=== PATIENT | female | born 1990 | race Caucasian/White ===

== ENCOUNTER 2024-06-08 12:02 | Outpatient (CLI) | payer BC, SELFPAY ==
[2024-06-08 12:48] LABS: Basophils Absolute Auto 0.1 K/mm3 (0.0-0.1); Basophils Percent Auto 0.6 % (0.2-1.2); Eosinophils Absolute Auto 0.1 K/mm3 (0-0.3); Eosinophils Percent Auto 0.5 % (0-4.4); Hematocrit 37.7 % (37.0-47.0); Hemoglobin 11.5 g/dL (12.0-15.0); Immature Granulocyte Absolute 0.05 K/mm3 (0.00-0.031); Immature Granulocyte Percent A 0.5 % (0-0.5); Lymphocytes Absolute Auto 2.99 K/mm3 (0.9-3.2); Lymphocytes Percent Auto 31.7 % (18.3-44.2); Mean Corpuscular HGB Conc 30.5 g/dl (32-36); Mean Corpuscular Hemoglobin 26.7 pg (26-34); Mean Corpuscular Volume 87.7 fl (80-100); Mean Platelet Volume 9.5 fl (7.4-10.4); Monocytes Absolute Auto 0.5 K/mm3 (0.1-0.6); Monocytes Percent Auto 5.5 % (2.6-8.5); Neutrophils Absolute Auto 5.8 K/mm3 (1.3-6.7); Neutrophils Percent Auto 61.2 % (45.5-73.1); Platelet Count Result 426 k/mm3 (150-375); Red Cell Distribution Width 13.9 % (11.5-14.5); White Blood Count 9.4 K/mm3 (4.5-10.0)
--- OUTSIDE RECORDS SUMMARY | 2024-06-08 13:47 | XMS_ITS | Referral Summary ---
Author Organization [facility] [address] Address [address] [place] [phone] Care Team Providers Care Glaze Carrier Name Role Phone Unknown, Notinfile Primary Care Provider Unavail able Encounters Date Type Department Care Team Description 04/24/2024 Telephone [email or web address] [address] [place] [address] [address] [address] Brissa Lemon MD Patient issue/concern 04/06/2024 Telephone [facility] Care at [address] [address] Brissa Lemon MD Vaginal Bleeding 03/25/2024 11:21 AM PRODUCTION COOK - 03/25/2024 11:59 PM PRODUCTION COOK Hospital Encounter [address] [phone] Missed period Discharge Disposition: Discharge to home or self care 03/25/2024 11:30 AM PRODUCTION COOK Lab [facility] Medical [facility] Outpatient Lab at [address] [address] Infertility, female (Primary Dx) 03/23/2024 11:30 AM PRODUCTION COOK - 03/23/2024 11:59 PM PRODUCTION COOK Hospital Encounter [address] [address] Missed period Discharge Disposition: Discharge to home or self care 03/23/2024 11:30 AM PRODUCTION COOK Lab [facility] Outpatient Lab at [address] [address] Hypercholesterolemia (Primary Dx) 03/23/2024 Telephone [facility] at [address] [address] Brissa Lemon MD Test Results from Last 3 Months Allergies No known active allergies Medications progesterone (PROMETRIUM) 100 mg capsule Take 1 capsule (100 mg total) by mouth daily Starting on Day 14 of the cycle. Increase to 200mg po with positive test. 30 capsule 11 4 01/21/20 25 Active Active Problems Problem Noted Date Diagnosed Date Hypercholesterolemia 01/08/2024 Well woman exam 12/30/2023 Overview (12/30/2023): Lab: Pap:all normal No recent labs. Kristin: Colonoscopy: BMD: Gardasil:she did not have. Assessment & Plan (12/30/2023 11:27 AM CDT): Due for complete exam in 09/2024 SAB (spontaneous ) 12/30/2023 Assessment & Plan (12/30/2023 11:32 AM CDT): To repeat beta To lp and hgba1c She just got blood work for thrombophilia secondary to her dad's h/o blood clots. He had a fatal PE. She has two mthfr mutations. I will check to see if she would benefit from different folic acid or basa. They will discuss carrier screening. Infertility, female 09/19/2023 Assessment & Plan (09/19/2023 9:37 AM CDT): The patient and her have actively been trying to conceive for about 1 year. The patient does appear to be ovulatory based on her symptoms and regular cycles. I did encourage her to continue to work on weight loss to promote fertility. We will go ahead and check a TSH as well as a 21 day progesterone. She also would like to look into a semen analysis for her , I will get some information on this. She will continue with timing intercourse. She does appear to have a shorter luteal phase, we could consider progesterone on the 2nd half of her cycle to see if this would improve her chances of fertility. Patient is agreeable. She will continue with vitamins. Social History Tobacco Use Types Packs/Day Years Used Date Smoking Tobacco: Never Smokeless Tobacco: Never Tobacco Cessation:Counseling Given: Not Answered Humiliation, Afraid, Rape, and Kick questionnair e Answer Date Recorded Within the last year, have y ou been afraid of your partner or ex-partner? No 12/30/2023 Within the last year, have y ou been humiliated or emotionally abused in other ways by your partner or ex-partner? No Within the last year, have y ou been kicked, hit, slapped, or otherwise physically hurt by your partner or ex-partner? No 12/30/2023 Within the last year, have y ou been raped or forced to have any kind of sexual activity by your partner or ex-partner? No 12/30/2023 AUDIT-C Answer Date Recorded Q1: How often do you have a drink containing alc ohol? Monthly or less 09/19/2023 Q2: How many drinks containi ng alcohol do you have on a typical day when you are drinking? 1 or 2 09/19/2023 Q3: How often do you have si x or more drinks on one occasion? Never 09/19/2023 PHQ-2 Answer Date Recorded PHQ-2 Total Score (If total score is 3 or more points, staff should administer the PHQ-9) 0 09/19/2023 Comments Unknown Sex and Gender Information Value Date Recorded Sex Assigned at Not on file Legal Sex Female 8:21 AM CDT Gender Identity Not on file Sexual Orientation Not on file Last Filed Vital Signs Vital Sign Reading Time Taken Comments Blood Pressure 122/72 12/30/2023 11:09 AM CDT Pulse - - Temperature - - Respiratory Rate - - Oxygen Saturation - - Inhaled Oxygen Concentration - - Weight 115.7 kg (255 lb) 12/30/2023 11:09 AM CDT Height 172.7 cm (5' 8 ) 12/30/2023 11:09 AM CDT Body Mass Index 38.77 12/30/2023 11:09 AM CDT Plan of Treatment Not on file Procedures Procedure Name Priority Date/Time Associated Diagnosis Comments HCG, BLOOD, QUANTITATIVE Routine 03/25/2024 11:21 AM PRODUCTION COOK Missed period TYPE AND SCREEN Timed 03/23/2024 11:30 AM PRODUCTION COOK Missed period PROGESTERONE Routine 03/23/2024 11:30 AM PRODUCTION COOK Missed period HCG, BLOOD, QUANTITATIVE Routine 03/23/2024 11:30 AM PRODUCTION COOK Missed period PAP AND HPV, REFLEX TO HPV GENOTYPES Routine 09/19/2023 9:45 AM CDT Encounter for gynecological examination with Papanicolaou smear of cervix from Last 3 Months or Most Recently Relevant to Health Maintenance Results * (ABNORMAL) hCG, blood, quantitative (03/25/2024 11:21 AM PRODUCTION COOK) hCG, quant 1,079.0(H ) 0.0 - 5.0 IUnits/L Comment: Interpretive Data Male: < 5 IU/L Non- premenopausal Female: <5 IU/L The Sindy hCG Beta Quant assay procedure was used. Results from different manufacturers or methods may not be comparable. Serial testing should be performed using the same method. Interpretive Data was last revised on 2023 Blood 03/25/2024 11:2 1 AM PRODUCTION COOK 03/25/2024 4:03 PM PRODUCTION COOK us Brissa Lemon MD LAB BLOOD ORDERABLE S Final Result CONNIE [address] Department [place] [address] * Progesterone (03/23/2024 11:30 AM PRODUCTION COOK) Progesterone 3.12 ng/mL Comment: Interpretive Data Males: <0.15 ng/mL Females: Follicular <0.20 ng/mL Ovulation <4.1 ng/mL Luteal 4.1 - 14.5 ng/mL 1st Trimester 11.0 - 44.0 ng/mL 2nd Trimester 25.0 - 83.0 ng/mL 3rd Trimester 59.0 - 214.0 ng/mL Postmenopausal <0.13 ng/mL Current interpretive data was last revised 2021. Testing performed by: [facility], [address] [facility], [place]., [address] Blood 03/23/2024 11:3 0 AM PRODUCTION COOK 03/24/2024 10:12 AM PRODUCTION COOK Brissa Lemon MD LAB BLOOD ORDERABLE S Final Result Performing Organization Address City/[facility] Co de Phone Number CONNIE [address] [address] [place] [address] * Type and screen (03/23/2024 11:30 AM PRODUCTION COOK) ABO Rh A Positive Jack, indirect Negative [facility] Blood 03/23/2024 11:3 0 AM PRODUCTION COOK 03/23/2024 3:25 PM PRODUCTION COOK Narrative [facility] - 03/23/2024 4:31 PM PRODUCTION COOK Has the patient had Daratumumab or Isatuximab in the past 6 months?->Unknown Result [facility] Brissa Lemon MD LAB BLOOD BANK TEST ORDERABLES Final Result Performing Organization Address [facility] de Phone Number ANAMARIAPAVAN [address] [address] [facility] [place] [address] * (ABNORMAL) hCG, blood, quantitative (03/23/2024 11:30 AM PRODUCTION COOK) hCG, quant 559.0(H) 0.0 - 5.0 IUnits/L Comment: Interpretive Data Male: < 5 IU/L Non- premenopausal Female: <5 IU/L The Sindy hCG Beta Quant assay procedure was used. Results from different manufacturers or methods may not be comparable. Serial testing should be performed using the same method. Interpretive Data was last revised on 2023 Blood 03/23/2024 11:3 0 AM PRODUCTION COOK 03/23/2024 3:19 PM PRODUCTION COOK Result [facility] Brissa Lemon MD LAB BLOOD ORDERABLE S Final Result Performing Organization Address [facility]/ZIP Co de Phone Number CONNIE REYNOLDS [address] [address] Department [place] [address] * Pap and HPV, reflex to HPV Genotypes (09/19/2023 9:45 AM CDT) CLINICAL INFORMATION: [facility] Comment:SCREENING LMP [facility] Comment:[id number] Previous Pap [facility] Comment:NONE GIVEN Prev. Bx [facility] Comment:NONE GIVEN SOURCE: [facility] Comment:Cervix, Endocervix Pap, specimen adequacy [facility] Comment: Satisfactory for evaluation. Endocervical/transformation zone component present. HPV interp [facility] Comment: Cytology Results: Negative for intraepithelial lesion or malignancy. COMMENTS [facility] Comment: This Pap test has been evaluated with computer assisted technology. Computer Artist [facility] Comment: [place], CT(ASCP) CT screening location: [place] [address] [place] [address] Comment [facility] Comment: EXPLANATORY NOTE: The Pap is a screening test for cervical cancer. It is not a diagnostic test and is subject to false negative and false positive results. It is most reliable when a satisfactory sample, regularly obtained, is submitted with relevant clinical findings and history, and when the Pap result is evaluated along with historic and current clinical information. Human papillomavirus DNA, High Risk E6/E7 Not Detected NOT DETECTED [employer] [facility] Comment: Not Detected High Risk HPV types (16,18,31,33,35,39,45,51,52, 56,58,59,66,68) were not detected. Other HPV types which cause anogenital lesions may be present. The significance of the other types of HPV in malignant processes has not been established. Methodology: Real Time PCR Thin prep 09/19/2023 9:45 AM CDT 09/21/2023 2:39 AM CDT us Olga Lidia Mancini NP LAB CYTOLOGY ORDERABLES Final Re sult Performing Organization Address City/[facility]/ZIP Co de Phone Number [place] [address] [place] [address] [facility]/[place] [address] [place] [address] from Last 3 Months or Most Recently Relevant to Health Maintenance Insurance [employer] ACCESS Care Teams Glaze Carrier Relationship Specialty Start Date End Date Unknown, Notinfile PCP - General 07/26/23
--- OUTSIDE RECORDS SUMMARY | 2024-06-08 13:47 | XMS_ITS | Clinical Summary ---
Author Organization [address] Address [address] [place] [address] Care Team Providers Care Metal Mixer Name Role Phone Unknown, Notinfile Primary Care Provider Unavail able Allergies No known active allergies Medications progesterone [...] is agreeable. She will continue with vitamins. Encounters Date Type Department Care Team Description 04/24/2024 Telephone [facility] [address] [place] [address] [address] [address] Brissa Lemon MD Patient issue/concern 04/06/2024 Telephone [facility] Care at [address] [address] Brissa Lemon MD Vaginal Bleeding 03/25/2024 11:30 AM PIPE SMOKER MACHINE OPERATOR Lab [facility] Outpatient Lab at [address] [address] Infertility, female (Primary Dx) 03/25/2024 11:21 AM PIPE SMOKER MACHINE OPERATOR - 03/25/2024 11:59 PM PIPE SMOKER MACHINE OPERATOR Hospital Encounter [address] [address] Missed period Discharge Disposition: Discharge to home or self care 03/23/2024 11:30 AM PIPE SMOKER MACHINE OPERATOR - 03/23/2024 11:59 PM PIPE SMOKER MACHINE OPERATOR Hospital Encounter [address] [address] Missed period Discharge Disposition: Discharge to home or self care 03/23/2024 11:30 AM PIPE SMOKER MACHINE OPERATOR Lab [facility] Outpatient Lab at [address] [address] Hypercholesterolemia (Primary Dx) 03/23/2024 Telephone [facility] at [address] [address] Brissa Lemon MD Test Results from Last 3 Months Family History Medical History Relation Name Comments Pulmonary embolism Father Ovarian cancer Maternal Grandmother Breast cancer Mother she was geneti dieter negative. Hypertension Mother Diabetes type II Paternal Grandfather Cancer Neg Hx no colon cmt Relation Name Status Comments Father Maternal Grandmother Mother Paternal Grandfather Social History Tobacco Use Types Packs/Day Years [...] on file Sexual Orientation Not on file Obstetrics History Para Term AB IAB SAB Ectopic Multiple Livin g Live Births 2 0 0 0 2 0 1 1 0 0 0 Date Outcome GA Total Labor Labor/2nd/3rd Weight Sex Type Anes PTL Leta A1 A5 Name Clin 024 SAB 025 Ectopic Last Filed Vital Signs Vital Sign Reading [...] 12/30/2023 11:09 AM CDT Plan of Treatment Health Maintenance Due Date Last Done Comments Hepatitis C Screening 1990 DTaP/Tdap/Td Vaccine (1 - Tdap) 2001 Varicella Vaccines (1 of 2 - 13+ 2-dose series) 10/01/2003 Hepatitis B Screening 2008 Covid-19 Vaccine (2023-2 5 season) 2023 07/24/2020, 07/01/2020 Influenza Vaccine (#1) 2023 12/16/2012 Cervical Cancer Screening 09/18/2024 09/19/2023 Depression Screening 09/18/2024 09/19/2023 Regular Well Visit/Exam 18-64 09/18/2024 09/19/2023 HPV Vaccines Aged Out No longer eligi ble based on patient's age to complete this topic Pneumococcal vaccine <65 Aged Out No longer eligible based on patient's age to complete this topic Procedures Procedure Name Priority Date/Time Associated Diagnosis Comments HCG, BLOOD, QUANTITATIVE Routine 03/25/2024 11:21 AM PIPE SMOKER MACHINE OPERATOR Missed period TYPE AND SCREEN Timed 03/23/2024 11:30 AM PIPE SMOKER MACHINE OPERATOR Missed period PROGESTERONE Routine 03/23/2024 11:30 AM PIPE SMOKER MACHINE OPERATOR Missed period HCG, BLOOD, QUANTITATIVE Routine 03/23/2024 11:30 AM PIPE SMOKER MACHINE OPERATOR Missed period PAP AND HPV, REFLEX TO HPV GENOTYPES Routine 09/19/2023 9:45 AM CDT Encounter for gynecological examination with Papanicolaou smear of cervix from Last 3 Months or Most Recently Relevant to Health Maintenance Results * (ABNORMAL) hCG, blood, quantitative (03/25/2024 11:21 AM PIPE SMOKER MACHINE OPERATOR) Pathologist [facility] hCG, quant 1,079.0(H ) 0.0 - 5.0 IUnits/L Comment: Interpretive Data Male: < 5 IU/L Non- premenopausal Female: <5 IU/L The Sindy hCG Beta Quant assay procedure was used. Results from different manufacturers or methods may not be comparable. Serial testing should be performed using the same method. Interpretive Data was last revised on 2023 Blood 03/25/2024 11:2 1 AM PIPE SMOKER MACHINE OPERATOR 03/25/2024 4:03 PM PIPE SMOKER MACHINE OPERATOR Brissa Lemon MD LAB BLOOD ORDERABLE S Final Result Performing Organization Address [facility] Co de Phone Number [facility] [address] [address] [employer] [place], [place] [id number] * Progesterone (03/23/2024 11:30 AM PIPE SMOKER MACHINE OPERATOR) Pathologist [facility] Progesterone 3.12 ng/mL Comment: Interpretive Data Males: <0.15 ng/mL Females: Follicular <0.20 ng/mL Ovulation <4.1 ng/mL Luteal 4.1 - 14.5 ng/mL 1st Trimester 11.0 - 44.0 ng/mL 2nd Trimester 25.0 - 83.0 ng/mL 3rd Trimester 59.0 - 214.0 ng/mL Postmenopausal <0.13 ng/mL Current interpretive data was last revised 2021. Testing performed by: [facility], [address] [place]., [address] Blood 03/23/2024 11:3 0 AM PIPE SMOKER MACHINE OPERATOR 03/24/2024 10:12 AM PIPE SMOKER MACHINE OPERATOR Brissa Lemon MD LAB BLOOD ORDERABLE S Final Result Performing Organization Address [facility] Co de Phone Number [facility] [address] [address] [facility] [place] [place] [address] * Type and screen (03/23/2024 11:30 AM PIPE SMOKER MACHINE OPERATOR) Pathologist [facility] ABO Rh A Positive Jack, indirect Negative [facility] Blood 03/23/2024 11:3 0 AM PIPE SMOKER MACHINE OPERATOR 03/23/2024 3:25 PM PIPE SMOKER MACHINE OPERATOR Narrative [facility] - 03/23/2024 4:31 PM PIPE SMOKER MACHINE OPERATOR Has the patient had Daratumumab or Isatuximab in the past 6 months?->Unknown Brissa Lemon MD LAB BLOOD BANK TEST ORDERABLES Final Result Performing Organization Address [facility] Co de Phone Number CONNIE [address] [address] [place] [place] [address] * (ABNORMAL) hCG, blood, quantitative (03/23/2024 11:30 AM PIPE SMOKER MACHINE OPERATOR) hCG, quant 559.0(H) 0.0 - 5.0 IUnits/L Comment: Interpretive Data Male: < 5 IU/L Non- premenopausal Female: <5 IU/L The Sindy hCG Beta Quant assay procedure was used. Results from different manufacturers or methods may not be comparable. Serial testing should be performed using the same method. Interpretive Data was last revised on 2023 Blood 03/23/2024 11:3 0 AM PIPE SMOKER MACHINE OPERATOR 03/23/2024 3:19 PM PIPE SMOKER MACHINE OPERATOR Result [facility] Brissa Lemon MD LAB BLOOD ORDERABLE S Final Result Performing Organization Address [facility] de Phone Number CONNIE [address] [address] [place] [place] [address] * Pap and HPV, reflex to HPV Genotypes (09/19/2023 9:45 AM CDT) CLINICAL INFORMATION: [facility] Comment:SCREENING LMP [facility] Comment:[id number] Previous Pap [facility] Comment:NONE GIVEN Prev. Bx [facility] Comment:NONE GIVEN SOURCE: [facility] Comment:Cervix, Endocervix Pap, specimen adequacy [facility] [employer] [facility] Comment: Satisfactory for evaluation. Endocervical/transformation zone component present. HPV interp [facility] Comment: Cytology Results: Negative for intraepithelial lesion or malignancy. COMMENTS [facility] Comment: This Pap test has been evaluated with computer assisted technology. Aids Nurse [facility] Comment: [place], CT(ASCP) CT screening location: [place] [address] [address] [place] [address] Comment [facility] Comment: EXPLANATORY NOTE: The Pap is [...] High Risk E6/E7 Not Detected NOT DETECTED [facility] /Iván CARRILLO Comment: Not Detected High Risk [...] NP LAB CYTOLOGY ORDERABLES Final Re sult [place] [address] [address] [place] [address] [facility] [place] [address] [facility] [place] [address] from Last 3 Months or Most Recently Relevant to Health Maintenance Insurance [facility] ACCESS Care Teams Metal Mixer Relationship Specialty Start Date End Date Unknown, Notinfile PCP - General 07/26/23
== END 2024-06-08 12:03 | disposition home or self-care (01) ==
LOC: ANHLAB 12:02
PROVIDERS: Visit Provider Obstetrics & Gynecology
DX: K66.1 Hemoperitoneum (principal)
CPT/HCPCS: 36415; 85025

== ENCOUNTER 2024-11-12 05:48 | Emergency (ER) | payer BC, SELFPAY ==
[2024-11-12] VITALS (36 sets, daily range): BP systolic 129–147; BP diastolic 82–106; PULSE 95–147; RESP 9–28; TEMP 37.1; O2SAT 96–100
--- NOTE | ~2024-11-12 | CT_ITS ---
CLINICAL INDICATION: Right upper quadrant pain COMPARISON: None. TECHNIQUE: Multiple contiguous axial images of the abdomen and pelvis were performed following the ad ministration of with 100 mL Omnipaque-350 intravenous contrast The dose-length product (DLP) was 1285.08 mGy-cm. Automated exposure control and iterative reconstruction technique were employed. FINDINGS/OBSERVATIONS: Visualized lower thorax: The bilateral lung bases are clear. The heart is of normal size, without pericardial effusion. Small hiatal hernia is present. Liver: The liver demonstrates homogeneous enhancement and is enlarged measuring 20 cm in longitudinal dimens ion. Gallbladder and biliary system: The gallbladder is distended and contains a 25 mm lamellated stone. Wall thickening and surrounding i nflammatory change is also noted consistent with acute cholecystitis. Pancreas: The pancreas enhances homogeneously without ductal dilatation. Spleen: The spleen enhances homogeneously and is not enlarged. Kidneys: The bilateral kidneys enhance symmetrically without renal calculi. Bilateral hydroureteronephrosis likely secondary bladder distention. Adrenal glands: Unremarkable. Gastrointestinal tract: Colonic diverticulosis without surrounding inflammatory change. Fecal stasis within the colon. Appendix: The air-filled appendix is of normal caliber (axial series, images 116 through 146). Vasculature: Unremarkable. Lymph nodes: No pathologically enlarged or morphologically suspicious lymph nodes within the retroperitoneum or at the root of the mesentery. Pelvic structures: The bladder is distended, and otherwise unremarkable. The uterus is anteroverted and antral flexed. 21 mm involuting cyst within the left ovary, asymmetrically enlarged compared to the right. Body wall and musculoskeletal: No significant degenerative disease within the lower thoracic or lumbosacral spine. IMPRESSION: Cholelithiasis with surrounding inflammatory change and gallbladder distention, findings suggestive o f acute cholecystitis (in the appropriate clinical scenario). Reviewed, dictated and finalized at location A. IMPRESSION: Cholelithiasis with surrounding inflammatory change and gallbladder distention, findings suggestive of acute cholecystitis (in the appropriate clinical scenar io).
--- OUTSIDE RECORDS SUMMARY | 2024-11-12 05:49 | XMS_ITS | Encounter Summary ---
Author Organization [facility] Address [address] [place] [address] Care Team Providers Care Consumer Relations Complaint Clerk Name Role Phone Unavailable Primary Care Provider Unavailabl e Reason for Visit * Radiology Services (Routine) - Authorized Specialty Diagnoses / Procedures Referred By Contac t Referred To Contact Radiology Diagnoses Procreative investigation and testing Procedures XR HYSTEROSALPINGOGRAM Cyn Sarabia MD [address] [place] [address] Phone: tel: fax: [facility] [address] [address] Phone: tel: fax: Referral ID Status Reason Start Date Expiration Date Visits Requested Visits Authorized [id number] Authorized [facility] Interventional 02/03/2025 1 1 Encounter Details Date Type Department Care Team (Late st Contact Info) Description 11/12/2024 1:00 PM CDT Hospital Encounter [facility] [place] [address] [place] [address] Cyn Sarabia MD [address] [place] [address] Social History Tobacco Use Types Packs/Day Years Used Date Smoking Tobacco: Never Assessed Comments Unknown Sex and Gender Information Value Date Recorded Sex Assigned at Not on file Legal Sex Female 9:14 AM CDT Gender Identity Not on file Sexual Orientation Not on file documented as of this encounter Plan of Treatment Not on file documented as of this encounter Visit Diagnoses Not on filedocumented in this encounter
--- OUTSIDE RECORDS SUMMARY | 2024-11-12 05:49 | XMS_ITS | Continuity of Care Document ---
Author Name [facility] Organization [facility] Care Team Providers Care Steel Plate Printer Name Role Phone [facility] Unavailable Unavailable Problems Combined list of problems from Department of Defense and Veterans Affairs facilities. It does not include entries that were removed or entered in error. Problem Status Onset Date Problem Type Date of Resolution Comments Source Outpatient Physician Consultation Active Condition [facility] CONDITIONS INFLUENCING HEALTH STATUS Active Condition DoD visit for: administrative purpose Inactive Condition [facility] Gynecologic Services Contraceptive Management Inactive Condition [facility] Cervical Pap Smear Inactive Condition Do D Established Patient Age 12-17 School / Camp Physical Inactive Condition [facility] Allergies, Adverse Reactions, Alerts Combined list of allergies from Department of Defense and Veterans Affairs facilities. It does not include entries that were removed or entered in error. Substance Category Reaction Severity Reaction type Status Date Reported Comments Source NO OUTPUT FOR NCID [id number] Drug allergy (disorder) active 10/02/[address] [place] [address] Rj MURILLO [facility]) Encounters Combined list of: 1) Encounters from Department of Veterans Affairs facilities going backup to the last 18 months, not all VA inpatient encounters are included; 2) Encounters from the Department of Defense facilities going backup to 280 months. Location Location Details Encounter Type Encounter Number Reason For Visit Attending Provider ADM Date DC Date Status Disposition Source [address] [place] [address] Rj [facility]ILLO [facility])(Sco tt [facility] Fam Res Tm Green) OUTPATIENT [id number] school ELEN Don 11/21 Released w/o Limitations [address] [place] [address] Rj [facility]S cott [facility] Fam Res Tm Green) [address] [place] [address] Rj [facility]ILLO [facility])(Fam darek Med Tm B Non-AD BCC) TELE CONSULT [id number] Notes Entered by: YOSELYN BABIN 15 Nov 2011 1258 ------- ------- ------- ------- -- WORLD TRAVEL COUNSELOR Referra l/Victorino ell/[phone]/KMR JOANNE COFFEY 11/[address] [place] [address])(F amily Med Tm B Non-AD BCC) [address] [place] [address])(Fam darek Med Tm B Non-AD BCC) TELE CONSULT [id number] Notes Entered by: QUIN LUCIANO 04 Dec 2011 1357 ------- ------- ------- ------- -- WORLD TRAVEL COUNSELOR Annamarie greer - [facility] JOANNE COFFEY 12/[address] [place] [address])(F amily Med Tm B Non-AD BCC) [address] [place] [address])(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) TELE CONSULT [id number] Notes Entered by: Franky URBINA 06 Dec 2011 1501 ------- ------- ------- ------- -- Pt would like annamarie greer off base VIRGINIA MOREL 12/[address] [place] [address])(G ynecolo gy) [address] [place] [address])(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) OUTPATIENT [id number] [facility] Contrac eptive Manage ent YIFAN MENSAH 12/13 Released w/o Limitations [address] [place] [address])(G ynecolo gy) [address] [place] [address])(Fam darek Med Tm B Non-AD BCC) TELE CONSULT [id number] Notes Entered by: MARK ALBERTO 26 Nov 2012 1546 ------- ------- ------- ------- -- Kalyan greer/GAURAV Vital 11/[address] [place] [address])(F amily Med Tm B Non-AD BCC) [address] [place] [address])(War rior Op Med Cln Tm A Ad) TELE CONSULT [id number] Notes Entered by: ABDIRASHID MCMULLEN 02 Jan 2013 1149 ------- ------- ------- ------- -- Network Results -ONCOLO GY 12/16/12 YAYA JEREMY STRAUSS 01/[address] [place] [address] Group Rj MURILLO ([facility]W arrior Op Med Cln Tm A Ad) [address] [place] [address] Group Rj MURILLO ([facility])(Fam darek Med Tm B Non-AD BCC) OUTPATIENT [id number] F/u concuss ion on Saturday [facility] RADHA ZAVALA 08/10 Released w/o Limitations [address] [place] [address] Group Rj MURILLO ([facility])(F amily Med Tm B Non-AD BCC) Procedures Combined list of: 1) Procedures from Department of Veterans Affairs facilities going back up to thelast 18 months, not all VA non-surgical procedures are included; 2) All procedures from the Department of Defense facilities. Procedure Procedure Type Code Date Perfomer Comments Sour e TELE ASSESS & MGT SRV PROV QUAL NONPHYS HLTH CARE PRO TO EST PAT,PARENT,GUARD NOT ORIG REL ASSESS & MGT SRV PROV W/IN PREV 7 DAYS NOR LEAD ASSESS & MGT SRV/PX W/IN NXT 24 HR/SOON APT;5-10 MIN MED DIS 11/26/2012 DoD TELE ASSESS & MGT SRV PROV QUAL NONPHYS HLTH CARE PRO TO EST PAT,PARENT,GUARD NOT ORIG REL ASSESS & MGT SRV PROV W/IN PREV 7 DAYS NOR LEAD ASSESS & MGT SRV/PX W/IN NXT 24H/SOON APT; 11-20 MIN MED DIS 12/04/2011 DoD TELE ASSESS & MGT SRV PROV QUAL NONPHYS HLTH CARE PRO TO EST PAT,PARENT,GUARD NOT ORIG REL ASSESS & MGT SRV PROV W/IN PREV 7 DAYS NOR LEAD ASSESS & MGT SRV/PX W/IN NXT 24H/SOON APT; 11-20 MIN MED DIS 11/15/2011 DoD Non-Physician Phone Call To Patient/Provider Brief (5-10min) Non-Physician Phone Call To Patient/Provider Brief (5-10min) [id number] 11/28/2012 GAURAV WEBER [facility] Non-Physician Phone Call To Pt/Provider Intermed (11-20 min) Non-Physician Phone Call To Pt/Provider Intermed (11-20 min) [id number] 12/06/2011 JOANNE COFFEY DoD Non-Physician Phone Call To Pt/Provider Intermed (11-20 min) Non-Physician Phone Call To Pt/Provider Intermed (11-20 min) [phone] 11/16/2011 JOANNE COFFEY DoD Social History Combined list of available smoking, tobacco, and other social history from Department of Defense and Veterans Affairs facilities. Social History Type Response Date Comment [facility] e This section is an empty social history section. DoD
--- OUTSIDE RECORDS SUMMARY | 2024-11-12 05:49 | XMS_ITS | Clinical Summary ---
Author Organization [facility] Administrative Offices Address [address] [place] [address] Care Team Providers Care Party Supply Specialist Name Role Phone Unavailable Primary Care Provider Unavailabl e Encounters Date Type Department Care Team Description 11/12/2024 1:00 PM CDT Hospital Encounter [facility] Diagnostic XR [address] [place] [phone] Cyn Sarabia MD from Last 3 Months Social History Tobacco Use Types Packs/Day Years Used Date Smoking Tobacco: Never Assessed Comments Unknown Sex and Gender Information Value Date Recorded Sex Assigned at Not on file Legal Sex Female 9:14 AM CDT Gender Identity Not on file Sexual Orientation Not on file Plan of Treatment Upcoming Encounters Date Type Department Care Team (Late st Contact Info) Description 11/12/2024 1:00 PM CDT Hospital Encounter [facility] Diagnostic XR [address] [place] [address] Cyn Sarabia MD [address] [place] [phone] Health Maintenance Due Date Last Done Comments HPV VACCINES (1 - 3-dose series) 2005 DTAP/TDAP/TD VACCINES (1 - Tdap) 2009 HEPATITIS B VACCINES (1 of 3 - 19+ 3-dose series) 09/13 HPV/Cotest (21-29) 10/01/2011 CERVICAL CANCER SCREENING 2020 HPV/Cotest (30-65) 2020 PAP SMEAR 2020 INFLUENZA VACCINE (#1) 2024
--- OUTSIDE RECORDS SUMMARY | 2024-11-12 05:49 | XMS_ITS | Referral Summary ---
Author Organization [address] Address [address] [place] [phone] Care Team Providers Care Light Armored Vehicle Officer Name Role Phone Unknown, Notinfile Primary Care [...] 11:09 AM CDT Height 172.7 cm (5' 8) 12/30/2023 11:09 AM CDT Body Mass Index 38.77 12/30/2023 11:09 AM CDT Plan of Treatment Not on file Procedures Procedure Name Priority Date/Time Associated Diagnosis Comments PAP AND HPV, REFLEX TO HPV GENOTYPES Routine 09/19/2023 9:45 AM CDT Encounter for gynecological examination with Papanicolaou smear of cervix from Last 3 Months or Most Recently Relevant to Health Maintenance Results * Pap and HPV, reflex to HPV Genotypes (09/19/2023 9:45 AM CDT) CLINICAL INFORMATION: [facility] Comment:SCREENING LMP [facility] Comment:[phone] Previous Pap [facility] Comment:NONE GIVEN Prev. Bx [facility] Comment:NONE GIVEN SOURCE: [facility] Comment:Cervix, Endocervix Pap, specimen adequacy [facility] Comment: Satisfactory for evaluation. Endocervical/transformation zone component present. HPV interp [facility] Comment: Cytology Results: Negative for intraepithelial lesion or malignancy. COMMENTS [facility] Comment: This Pap test has been evaluated with computer assisted technology. Motion Picture Set Grip [facility] Comment: [place], [place](ASCP) CT screening location: [place] [address] [place] [address] Comment [facility] Comment: EXPLANATORY NOTE: The Pap is a [...] High Risk E6/E7 Not Detected NOT DETECTED [facility] /Iván CARRILL[facility] Comment: Not Detected High Risk HPV types (16,18,31,33,35,39,45,51,52, 56,58,59,66,68) were not detected. Other HPV types which cause anogenital lesions may be present. The significance of the other types of HPV in malignant processes has not been established. Methodology: Real Time PCR Thin prep 09/19/2023 9:45 AM CDT 09/21/2023 2:39 AM CDT Olga Lidia Mancini NP LAB CYTOLOGY ORDERABLES Final Re [facility] [address] [place] [address] [facility] [address] [place] [address] from Last 3 Months or Most Recently Relevant to Health Maintenance Insurance [employer] ACCESS Care Teams Light Armored Vehicle Officer Relationship Specialty Start Date End Date Unknown, Notinfile PCP - General 07/26/23
--- OUTSIDE RECORDS SUMMARY | 2024-11-12 05:49 | XMS_ITS | Clinical Summary ---
Author Organization [address] Address [address] [place] [phone] Care Team Providers Care Ranch Manager Name Role Phone Unknown, Notinfile Primary Care [...] is agreeable. She will continue with vitamins. Family History Medical History Relation Name Comments [...] 2-dose series) 10/01/2003 Hepatitis B Screening 2008 HPV Vaccines (1 - 3-dose SCD M series) 2017 Covid-19 Vaccine (3 - 2023-2 5 season) 2023 07/24/2020, 07/01/2020 Cervical Cancer Screening 09/18/2024 09/19/2023 Depression Screening 09/18/2024 09/19/2023 Regular Well Visit/Exam 18-64 09/18/2024 09/19/2023 Influenza Vaccine (#1) 2024 12/16/2012 Pneumococcal vaccine <65 Aged Out No longer [...] Genotypes (09/19/2023 9:45 AM CDT) CLINICAL INFORMATION: [facility] Comment:SCREENING LMP [facility] Comment:[id number] Previous Pap [facility] Comment:NONE GIVEN Prev. Bx [facility] Comment:NONE GIVEN SOURCE: [facility] Comment:Cervix, Endocervix Pap, specimen adequacy [facility] Comment: Satisfactory for evaluation. Endocervical/transformation zone component present. HPV interp [facility] Comment: Cytology Results: Negative for intraepithelial lesion or malignancy. COMMENTS [facility] Comment: This Pap test has been evaluated with computer assisted technology. Cattle Killer Que [facility] Comment: [place], [place](ASCP) CT screening location: [place] [address] [address] [place] [address] Comment [facility] Comment: EXPLANATORY NOTE: The Pap is [...] High Risk E6/E7 Not Detected NOT DETECTED Rigo Chavez /Iván CARRILLO Comment: Not Detected High Risk [...] NP LAB CYTOLOGY ORDERABLES Final Re sult [facility] [address] [place] [address] [address] Chavez/[place] [address] [facility] [place] [address] from Last 3 Months or Most Recently Relevant to Health Maintenance Insurance [employer] ACCESS Care Teams Ranch Manager Relationship Specialty Start Date End Date Unknown, Notinfile PCP - General 07/26/23
[2024-11-12 06:07] LABS: BEDSIDEPREGUCG Negative (Negative)
[2024-11-12] MEDS: SODIUM CHLORIDE 0.9% IV 2,000 ML 999 ML IV CONT (06:08)
[2024-11-12 06:10] LABS: Hematocrit 38.4 % (37.0-47.0); Hemoglobin 12.4 g/dL (12.0-15.0); Immature Granulocyte Percent A 0.3 % (0-0.5); Lymphocytes Absolute Auto 2.24 K/mm3 (0.9-3.2); Mean Corpuscular HGB Conc 32.3 g/dl (32-36); Mean Corpuscular Hemoglobin 28.0 pg (26-34); Mean Corpuscular Volume 86.7 fl (80-100); Nucleated Red Blood Cells Absolute Auto 0.000 K/mm3 (0.0-0.012); Nucleated Red Blood Cells Perc 0.0 % (0.0-0.2); Platelet Count Result 371 k/mm3 (150-375); Red Blood Count 4.43 M/mm3 (4.2-5.4); White Blood Count 14.2 K/mm3 (4.5-10.0)
[2024-11-12] MEDS: FAMOTIDINE 20 MG/2 ML VIAL IV PUSH (06:12)
[2024-11-12] MEDS: ONDANSETRON INJ 4 MG/2 ML VIAL IV PUSH (06:12)
--- NOTE | 2024-11-12 06:15 | ED.GENADULT ---
HPI - General Adult General Chief complaint: Abdominal Pain <Joaquim Roberts MD - Last Filed: 11/12/24 19:03> Stated complaint: flank pain <Joaquim Roberts MD - Last Filed: 11/12/24 19:03> Time Seen by Provider: 11/12/24 06:03 <Joaquim Roberts MD - Last Filed: 11/12/24 19:03> History of Present Illness HPI narrative: This is a 34-year-old female presenting for right upper quadrant abdominal pain. Pain started Saturday night. She describes it as a burning pain in the right quadrant that radiates to her back. It is 5 out 10 intensity. Pain comes and goes. It improves with Motrin Tylenol. Associated with nausea but no vomiting or diarrhea. She denies fevers chest pain difficulty breathing. Patient has no history of biliary colic or gallstones she is aware of. Last bowel movement was earlier today and was normal. Patient had an ectopic treated with surgery in April of this year <Joaquim Roberts MD - Last Filed: 11/12/24 19:03> Related Data Home medications: Home Medications ?Medication ?Instructions ?Recorded ?Confirmed ?Last Taken ?Type aspirin 81 mg tablet,delayed 81 mg PO DAILY 05/11/24 09/11/24 Unknown History release (Adult Low Dose Aspirin) vitamins no.68-iron 28 1 cap PO DAILY 05/11/24 09/11/24 Unknown History mg-folate no.6 1 mg-dha 400 mg capsule <Joaquim Roberts MD - Last Filed: 11/12/24 19:03> Allergies/adverse reactions: Allergies Allergy/AdvReac Type Severity Reaction Status Date / Time No Known Allergies Allergy Unknown Verified 09/11/24 09:26 <Joaquim Roberts MD - Last Filed: 11/12/24 19:03> FOR[facility]LY [facility] Past Medical History Medical History: Medical History Hemoperitoneum Obesity <Joaquim Roberts MD - Last Filed: 11/12/24 19:03> Surgical History Surgical History: Surgical History H/O unilateral salpingectomy (04/23/24) Evacuation hematoma 2. Left salpingectomy <Joaquim Roberts MD - Last Filed: 11/12/24 19:03> Family History Family History: Family History Mother Breast cancer Depression Hypertension Father Pulmonary air embolism, Onset Age: 47 Grandparent H/O ovarian cancer maternal grandmother <Joaquim Roberts MD - Last Filed: 11/12/24 19:03> Social History Social History: Social History Smoking status: Never smoker Second hand tobacco smoke exposure: Yes Alcohol intake: current Alcohol use details: 1 a month Substance use: never Substance use type: does not use Do You Feel Safe in your Home?: Yes Lack of Transportation: No Lack of Food: Never True Current Housing: I Have Housing Concerned About Future Housing: No Difficulty Paying Gas/Electric Bills: No Difficulty Paying for Meds: No Currently Unemployed: No Education: Bachelor's Degree Difficulty w/ Childcare or Family Care: No Living arrangements: with family Additional living arrangements comments: Occupation/Education: 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 Anxious appearing Head: atraumatic. EYES: EOMI, NOSE: Atraumatic NECK: Trachea midline RESPIRATORY: No increased rate of breathing CTAB CARDIOVASCULAR: Tachycardic no peripheral edema ABDOMINAL: Tenderness to palpation in the right upper quadrant without guarding or rebound MUSCULOSKELETAl: No obvious deformities NEURO: Alert. Moving 4/4 extremities SKIN:: Warm, dry. Normal color PSYCHIATRIC: Normal affect <Joaquim Roberts MD - Last Filed: 11/12/24 19:03> Course Course Emergency Course: Patient resting comfortably. Informed of results. Abdomen is soft nontender. Discussed with the General surgery. Recommends outpatient follow-up with low-fat diet. Patient comfortable with this plan. Discussed return precautions. Discharge. <Terrance Saeed MD - Last Filed: 11/12/24 09:30> Vital Signs Vital signs: Vital Signs Temperature 98.7 F 11/12/24 05:59 Pulse Rate 130 H 11/12/24 05:59 Respiratory Rate 17 11/12/24 05:59 Blood Pressure 147/82 H 11/12/24 05:59 Pulse Oximetry 100 11/12/24 05:59 Oxygen Delivery Room Air 11/12/24 05:59 Temperature 98.7 F 11/12/24 05:59 Pulse Rate 115 H 11/12/24 08:50 Respiratory Rate 16 11/12/24 08:50 Blood Pressure 130/84 11/12/24 08:01 Pulse Oximetry 99 11/12/24 08:50 Oxygen Delivery Room Air 11/12/24 05:59 <Joaquim Roberts MD - Last Filed: 11/12/24 19:03> Vital Signs Temperature 98.7 F 11/12/24 05:59 Pulse Rate 130 H 11/12/24 05:59 Respiratory Rate 17 11/12/24 05:59 Blood Pressure 147/82 H 11/12/24 05:59 Pulse Oximetry 100 11/12/24 05:59 Oxygen Delivery Room Air 11/12/24 05:59 Temperature 98.7 F 11/12/24 05:59 Pulse Rate 115 H 11/12/24 08:50 Respiratory Rate 16 11/12/24 08:50 Blood Pressure 130/84 11/12/24 08:01 Pulse Oximetry 99 11/12/24 08:50 Oxygen Delivery Room Air 11/12/24 05:59 <Terrance Saeed MD - Last Filed: 11/12/24 09:30> Medical Decision Making MDM Narrative Medical decision making narrative: -Course: 34-year-old female presenting with right upper quadrant abdominal pain. Tachycardic on arrival although she admits to being very anxious. Patient given IV fluids, Pepcid and Zofran. She declined Dilaudid. Laboratory studies and CT abdomen pelvis ordered to evaluate for cholecystitis. Patient signed out the and condition pending completion of her workup in -DDX includes but is not limited to: Biliary colic, gastritis, colitis, pancreatitis, appendicitis <Joaquim Roberts MD - Last Filed: 11/12/24 19:03> Vital Signs Vital Signs: Vital Signs Temperature 98.7 F 11/12/24 05:59 Pulse Rate 130 H 11/12/24 05:59 Respiratory Rate 17 11/12/24 05:59 Blood Pressure 147/82 H 11/12/24 05:59 Pulse Oximetry 100 11/12/24 05:59 Oxygen Delivery Room Air 11/12/24 05:59 Temperature 98.7 F 11/12/24 05:59 Pulse Rate 115 H 11/12/24 08:50 Respiratory Rate 16 11/12/24 08:50 Blood Pressure 130/84 11/12/24 08:01 Pulse Oximetry 99 11/12/24 08:50 Oxygen Delivery Room Air 11/12/24 05:59 <Joaquim Roberts MD - Last Filed: 11/12/24 19:03> Vital Signs Temperature 98.7 F 11/12/24 05:59 Pulse Rate 130 H 11/12/24 05:59 Respiratory Rate 17 11/12/24 05:59 Blood Pressure 147/82 H 11/12/24 05:59 Pulse Oximetry 100 11/12/24 05:59 Oxygen Delivery Room Air 11/12/24 05:59 Temperature 98.7 F 11/12/24 05:59 Pulse Rate 115 H 11/12/24 08:50 Respiratory Rate 16 11/12/24 08:50 Blood Pressure 130/84 11/12/24 08:01 Pulse Oximetry 99 11/12/24 08:50 Oxygen Delivery Room Air 11/12/24 05:59 <Terrance Saeed MD - Last Filed: 11/12/24 09:30> Lab Data Result diagrams: 11/12/24 06:04 11/12/24 06:04 <Joaquim Roberts MD - Last Filed: 11/12/24 19:03> Labs: Lab Results 11/12/24 11/12/24 Range/Units 06:04 06:05 WBC 14.2 H (4.5-10.0) K/mm3 RBC 4.43 (4.2-5.4) M/mm3 Hgb 12.4 (12.0-15.0) g/dL Hct 38.4 (37.0-47.0) % MCV 86.7 (80-100) fl MCH 28.0 (26-34) pg MCHC 32.3 (32-36) g/dl RDW 14.5 (11.5-14.5) % Plt Count 371 (150-375) k/mm3 MPV 9.7 (7.4-10.4) fl Immature Gran % (Auto) 0.3 (0-0.5) % Neut % (Auto) 77.8 H (45.5-73.1) % Lymph % (Auto) 15.8 L (18.3-44.2) % [place] % (Auto) 4.9 (2.6-8.5) % Eos % (Auto) 0.8 (0-4.4) % Baso % (Auto) 0.4 (0.2-1.2) % Lymph # (Auto) 2.24 (0.9-3.2) K/mm3 [place] # (Auto) 0.7 H (0.1-0.6) K/mm3 Eos # (Auto) 0.1 (0-0.3) K/mm3 Baso # (Auto) 0.1 (0.0-0.1) K/mm3 Abs Immat Gran (auto) 0.04 H (0.00-0.031) K/mm3 Absolute Neuts (auto) 11.1 H (1.3-6.7) K/mm3 Absolute Nucleated RBC 0.000 (0.0-0.012) K/mm3 Nucleated RBC % 0.0 (0.0-0.2) % Sodium 135 L (137-145) mmol/L Potassium 3.3 L (3.4-5.0) mmol/L Chloride 99 (98-107) mmol/L Carbon Dioxide 25 (22-30) mmol/L Anion Gap 11 (4-12) mmol/L BUN 5 L D (7-17) mg/dL Creatinine 0.61 L (0.7-1.0) mg/dL Estim Creat Clear Calc 143 ml/min Estimated GFR > 60 (59 - ) Glucose 105 (65-110) mg/dL Calcium 9.5 (8.4-10.2) mg/dL Total Bilirubin 2.3 H (0.2-1.3) mg/dL AST 36 (14-36) U/L ALT 37 H (6-35) U/L Alkaline Phosphatase 92 (38-126) U/L Total Protein 8.7 H (6.3-8.2) g/dL Albumin 4.4 (3.5-5.1) g/dL Lipase 84 (23-300) U/L Urine Color Yellow (Yellow) Urine Appearance Clear (Clear) Urine pH 7.0 (5.0-9.0) Ur Specific [place] 1.008 (1.001-1.035) Urine Protein Negative (Negative) mg/dL Urine Glucose (UA) Negative (Negative) mg/dL Urine Ketones 1+ H (Negative) mg/dL Ur Blood (Man) 2+ H (Negative) Urine Nitrate Negative (Negative) Urine Bilirubin Negative (Negative) Urine Urobilinogen 1.0 (<2.0) mg/dL Leukocyte Esterase Rfl Negative (Negative) HANS/UL Urine RBC 11-20 H (0-2) /hpf Urine WBC 0-5 (0-3) /hpf Ur Squamous Epith Cells None seen (Few) /hpf Urine Bacteria None seen /hpf Urine Casts 0-2 POC Urine HCG, Qual Negative (Negative) <Joaquim Roberts MD - Last Filed: 11/12/24 19:03> Lab Results 11/12/24 11/12/24 Range/Units 06:04 06:05 WBC 14.2 H (4.5-10.0) K/mm3 RBC 4.43 (4.2-5.4) M/mm3 Hgb 12.4 (12.0-15.0) g/dL Hct 38.4 (37.0-47.0) % MCV 86.7 (80-100) fl MCH 28.0 (26-34) pg MCHC 32.3 (32-36) g/dl RDW 14.5 (11.5-14.5) % Plt Count 371 (150-375) k/mm3 MPV 9.7 (7.4-10.4) fl Immature Gran % (Auto) 0.3 (0-0.5) % Neut % (Auto) 77.8 H (45.5-73.1) % Lymph % (Auto) 15.8 L (18.3-44.2) % [place] % (Auto) 4.9 (2.6-8.5) % Eos % (Auto) 0.8 (0-4.4) % Baso % (Auto) 0.4 (0.2-1.2) % Lymph # (Auto) 2.24 (0.9-3.2) K/mm3 [place] # (Auto) 0.7 H (0.1-0.6) K/mm3 Eos # (Auto) 0.1 (0-0.3) K/mm3 Baso # (Auto) 0.1 (0.0-0.1) K/mm3 Abs Immat Gran (auto) 0.04 H (0.00-0.031) K/mm3 Absolute Neuts (auto) 11.1 H (1.3-6.7) K/mm3 Absolute Nucleated RBC 0.000 (0.0-0.012) K/mm3 Nucleated RBC % 0.0 (0.0-0.2) % Sodium 135 L (137-145) mmol/L Potassium 3.3 L (3.4-5.0) mmol/L Chloride 99 (98-107) mmol/L Carbon Dioxide 25 (22-30) mmol/L Anion Gap 11 (4-12) mmol/L BUN 5 L D (7-17) mg/dL Creatinine 0.61 L (0.7-1.0) mg/dL Estim Creat Clear Calc 143 ml/min Estimated GFR > 60 (59 - ) Glucose 105 (65-110) mg/dL Calcium 9.5 (8.4-10.2) mg/dL Total Bilirubin 2.3 H (0.2-1.3) mg/dL AST 36 (14-36) U/L ALT 37 H (6-35) U/L Alkaline Phosphatase 92 (38-126) U/L Total Protein 8.7 H (6.3-8.2) g/dL Albumin 4.4 (3.5-5.1) g/dL Lipase 84 (23-300) U/L Urine Color Yellow (Yellow) Urine Appearance Clear (Clear) Urine pH 7.0 (5.0-9.0) Ur Specific [place] 1.008 (1.001-1.035) Urine Protein Negative (Negative) mg/dL Urine Glucose (UA) Negative (Negative) mg/dL Urine Ketones 1+ H (Negative) mg/dL Ur Blood (Man) 2+ H (Negative) Urine Nitrate Negative (Negative) Urine Bilirubin Negative (Negative) Urine Urobilinogen 1.0 (<2.0) mg/dL Leukocyte Esterase Rfl Negative (Negative) HANS/UL Urine RBC 11-20 H (0-2) /hpf Urine WBC 0-5 (0-3) /hpf Ur Squamous Epith Cells None seen (Few) /hpf Urine Bacteria None seen /hpf Urine Casts 0-2 POC Urine HCG, Qual Negative (Negative) <Terrance Saeed MD - Last Filed: 11/12/24 09:30> Discharge Plan Discharge Clinical Impression: Biliary colic <Joaquim Roberts MD - Last Filed: 11/12/24 19:03> Patient Disposition: Home <Joaquim Roberts MD - Last Filed: 11/12/24 19:03> Condition: Stable <Joaquim Roberts MD - Last Filed: 11/12/24 19:03> Instructions: Biliary Colic (ED), Low Fat Diet (ED) <Joaquim Roberts MD - Last Filed: 11/12/24 19:03> Additional Instructions: Return to the emergency department if you develop severe abdominal pain, severe nausea and vomiting to the point where you are unable to keep down fluids, if you develop chest pain or difficulty breathing, blood in your stool, dizziness or fainting, or if you develop any other new or concerning symptoms as these could be signs of more serious medical illness. Try to stay well hydrated. <Joaquim Roberts MD - Last Filed: 11/12/24 19:03> Patient Language: Cape Verdean <Joaquim Roberts MD - Last Filed: 11/12/24 19:03> Prescriptions: No Action progesterone micronized [Prometrium] 200 mg capsule 200 mg PO QHS 45 Days Qty: 45 3RF [id number] 28 mg iron- 1 mg-400 mg capsule 1 cap PO DAILY aspirin [Adult Low Dose Aspirin] 81 mg tablet,delayed release (DR/EC) 81 mg PO DAILY <Joaquim Roberts MD - Last Filed: 11/12/24 19:03> Follow-up/Referrals: Gio Osei MD [Physician] - 1 Week UNKNOWN,DOCTOR [Primary Care Provider] - <Joaquim Roberts MD - Last Filed: 11/12/24 19:03>
--- OUTSIDE RECORDS SUMMARY | 2024-11-12 06:17 | XMS_ITS | Referral Summary ---
Author Organization [address] Address [address] [place] [address] Care Team Providers Care Director Hospice Operations Name Role Phone Unknown, Notinfile Primary Care [...] Genotypes (09/19/2023 9:45 AM CDT) CLINICAL INFORMATION: [facility] Comment:SCREENING LMP [facility] Comment:[id number] Previous Pap [facility] Comment:NONE GIVEN Prev. Bx [facility] Comment:NONE GIVEN SOURCE: [facility] Comment:Cervix, Endocervix Pap, specimen adequacy [facility] Comment: Satisfactory for evaluation. Endocervical/transformation zone component present. HPV interp [facility] Comment: Cytology Results: Negative for intraepithelial lesion or malignancy. COMMENTS [facility] Comment: This Pap test has been evaluated with computer assisted technology. Roll Out Manager [facility] Comment: [place], [place](ASCP) CT screening location: [place] [address] [place] [address] [facility] Comment: EXPLANATORY NOTE: The Pap is [...] High Risk E6/E7 Not Detected NOT DETECTED [employer] [facility] [place] Comment: Not Detected High Risk HPV types (16,18,31,33,35,39,45,51,52, 56,58,59,66,68) were not detected. Other HPV types which cause anogenital lesions may be present. The significance of the other types of HPV in malignant processes has not been established. Methodology: Real Time PCR Thin prep 09/19/2023 9:45 AM CDT 09/21/2023 2:39 AM CDT Olga Lidia Mancini NP LAB CYTOLOGY ORDERABLES Final [facility] [address] [place] [address] [facility] [address] [place] [address] from Last 3 Months or Most Recently Relevant to Health Maintenance Insurance [employer] ACCESS Care Teams Director Hospice Operations Relationship Specialty Start Date End Date Unknown, Notinfile PCP - General 07/26/23
--- OUTSIDE RECORDS SUMMARY | 2024-11-12 06:17 | XMS_ITS | Clinical Summary ---
Author Organization [facility] Address [address] [place] [address] Care Team Providers Care Salt Manager Name Role Phone Unavailable Primary Care Provider Unavailabl e Encounters Date Type Department Care Team Description 11/12/2024 1:00 PM CDT Hospital Encounter [facility] [place]R [address] [place] [phone] Cyn Sarabia MD from Last 3 Months [...] Description 11/12/2024 1:00 PM CDT Hospital Encounter [facility] Diagnostic [place]R [address] [place] [address] Cyn Sarabia MD [address] [phone] Health Maintenance Due Date Last Done Comments HPV VACCINES (1 - 3-dose series) 2005 DTAP/TDAP/TD VACCINES (1 - Tdap) 2009 HEPATITIS B VACCINES (1 of 3 - 19+ 3-dose series) 09/13 HPV/Cotest (21-29) 10/01/2011 CERVICAL CANCER SCREENING 2020 HPV/Cotest (30-65) 2020 PAP SMEAR 2020 INFLUENZA VACCINE (#1) 2024
--- OUTSIDE RECORDS SUMMARY | 2024-11-12 06:17 | XMS_ITS | Clinical Summary ---
Author Organization [address] Address [address] [place] [address] Care Team Providers Care Cube Cutter Name Role Phone Unknown, Notinfile Primary Care [...] Genotypes (09/19/2023 9:45 AM CDT) CLINICAL INFORMATION: [facility] Comment:SCREENING LMP [facility] Comment:[id number] Previous Pap [facility] Comment:NONE GIVEN Prev. Bx [facility] Comment:NONE GIVEN SOURCE: [facility] Comment:Cervix, Endocervix Pap, specimen adequacy [facility] Comment: Satisfactory for evaluation. Endocervical/transformation zone component present. HPV interp [facility] Comment: Cytology Results: Negative for intraepithelial lesion or malignancy. COMMENTS [facility] Comment: This Pap test has been evaluated with computer assisted technology. [employer] [facility] Comment: [place], [place](ASCP) CT screening location: [place] [address] [address] [address] Comment [facility] Comment: EXPLANATORY NOTE: The Pap is [...] NP LAB CYTOLOGY ORDERABLES Final Re sult [facility] [address] [address] [address] [address] [facility] [place] [address] from Last 3 Months or Most Recently Relevant to Health Maintenance Insurance [employer] ACCESS Care Teams Cube Cutter Relationship Specialty Start Date End Date Unknown, Notinfile PCP - General 07/26/23
--- OUTSIDE RECORDS SUMMARY | 2024-11-12 06:17 | XMS_ITS | Continuity of Care Document ---
Author Name [facility] Organization [facility] Care Team Providers Care Data Support Analyst Name Role Phone [facility] Unavailable Unavailable Problems Combined list of problems from Department of Defense and Veterans Affairs facilities. It does not include entries that were removed or entered in error. Problem Status Onset Date Problem Type Date of Resolution Comments Source Outpatient Physician Consultation Active Condition [facility] CONDITIONS INFLUENCING HEALTH STATUS Active Condition DoD visit for: administrative purpose Inactive Condition [facility] Gynecologic Services Contraceptive Management Inactive Condition [facility] Cervical Pap Smear Inactive Condition Do D Established Patient Age 12-17 School / Camp Physical Inactive Condition [facility] Allergies, Adverse Reactions, Alerts Combined list of allergies from Department of Defense and Veterans Affairs facilities. It does not include entries that were removed or entered in error. Substance Category Reaction Severity Reaction type Status Date Reported Comments Source NO OUTPUT FOR NCID [id number] Drug allergy (disorder) active 10/02/[address] [place] [address] Rj [facility]ILLO [facility] Encounters Combined list of: 1) Encounters from Department of Veterans Affairs facilities going backup to the last 18 months, not all VA inpatient encounters are included; 2) Encounters from the Department of Defense facilities going backup to 280 months. Location Location Details Encounter Type Encounter Number Reason For Visit Attending Provider ADM Date DC Date Status Disposition Source [address] [place] [address] Rj [facility]ILLO [facility]Sco tt [facility] Fam Res Tm Green) OUTPATIENT [id number] school ELEN Don 11/21 Released w/o Limitations [address] [place] [address] Rj [facility]ILLO [facility]S cott [facility] Fam Res Tm Green) [address] [place] [address] Rj [facility]O [facility]Fam darek Med Tm B Non-AD BCC) TELE CONSULT [id number] Notes Entered by: YOSELYN BABIN 15 Nov 2011 1258 ------- ------- ------- ------- -- GREY TENDER Referra l/Victorino ell/[phone]/KMR JOANNE COFFEY 11/[address] [place] [address])(F amily Med Tm B Non-AD BCC) [address] [place] [address])(Fam darek Med Tm B Non-AD BCC) TELE CONSULT [id number] Notes Entered by: QUIN LUCIANO 04 Dec 2011 1357 ------- ------- ------- ------- -- GREY TENDER Annamarie greer - [facility] JOANNE COFFEY 12/[address] [place] [address])(F amily Med Tm B Non-AD BCC) [address] [place] [address])(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) TELE CONSULT [id number] Notes Entered by: Franky URBINA 06 Dec 2011 1501 ------- ------- ------- ------- -- Pt would like annamarie greer off base VIRGINIA MOREL 12/[address] [place] [address])(G ynecolo gy) [address] [place] [address])(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) OUTPATIENT [id number] Gynecol ogic Service s Contrac eptive Manage ent YIFAN MENSAH 12/13 Released w/o Limitations [address] [place] [address])(G ynecolo gy) [address] [place] [address])(Fam darek Med Tm B Non-AD BCC) TELE CONSULT [id number] Notes Entered by: MARK ALBERTO 26 Nov 2012 1546 ------- ------- ------- ------- -- Kalyan greer/GAURAV Vital 11/[address] [place] [address])(F amily Med Tm B Non-AD BCC) [address] [place] [address])(War rior Op Med Cln Tm A Ad) TELE CONSULT [id number] Notes Entered by: ABDIRASHID MCMULLEN 02 Jan 2013 1149 ------- ------- ------- ------- -- Network Results -ONCOLO GY 12/16/12 YAYA JEREMY STRAUSS 01/[address] [place] [address] Group Rj MURILLO ([facility])(W arrior Op Med Cln Tm A Ad) [address] [place] [address] Group Rj MURILLO ([facility])(Fam darek Med Tm B Non-AD BCC) OUTPATIENT [id number] F/u concuss ion on [facility] RADHA ZAVALA 08/10 Released w/o Limitations [address] [place] [address] Group Rj MURILLO ([facility])(F amily Med Tm B Non-AD BCC) Procedures [...] Non-Physician Phone Call To Patient/Provider Brief (5-10min) [id number] 11/28/2012 GAURAV WEBER [facility] Non-Physician Phone Call To Pt/Provider Intermed (11-20 min) Non-Physician Phone Call To Pt/Provider Intermed (11-20 min) [id number] 12/06/2011 JOANNE COFFEY DoD Non-Physician Phone Call To Pt/Provider Intermed (11-20 min) Non-Physician Phone Call To Pt/Provider Intermed (11-20 min) [id number] 11/16/2011 JOANNE COFFEY DoD Social History Combined list of available smoking, tobacco, and other social history from Department of Defense and Veterans Affairs facilities. Social History Type Response Date Comment [facility] e This section is an empty social history section. DoD
--- OUTSIDE RECORDS SUMMARY | 2024-11-12 06:17 | XMS_ITS | Encounter Summary ---
Author Organization [facility] Address [address] [place] [address] Care Team Providers Care Sheet Metal Duct Worker Supervisor Name Role Phone Unavailable Primary Care Provider Unavailabl e Reason for Visit * Radiology Services (Routine) - Authorized Specialty Diagnoses / Procedures Referred By Contac t Referred To Contact Radiology Diagnoses Procreative investigation and testing Procedures XR HYSTEROSALPINGOGRAM Cyn Sarabia MD [address] [address] Phone: tel: fax: [facility] [address] [address] Phone: tel: fax: Referral ID Status Reason Start Date Expiration Date Visits Requested Visits Authorized [id number] Authorized [facility] Interventional 02/03/2025 1 1 Encounter Details Date Type Department Care Team (Late st Contact Info) Description 11/12/2024 1:00 PM CDT Hospital Encounter [facility] [place] [address] [place] [address] Cyn Sarabia MD [address] [...]
[2024-11-12 06:18] LABS: Add Urine Microscopic? YES; Appearance Urine Clear (Clear); Glucose Urine UA Negative (Negative); Leukocyte Esterase Ur Negative LEU/UL (Negative); Nitrate Urine Negative (Negative); Non Pathogenic Casts 0-2; Specific Grav Ur 1.008 (1.001-1.035)
[2024-11-12 06:32] LABS: Alanine Aminotransferase 37 U/L (6-35); Albumin Level 4.4 g/dL (3.5-5.1); Alkaline Phosphatase 92 U/L (38-126); Anion Gap 11 mmol/L (4-12); Aspartate Amino Transferase 36 U/L (14-36); Bilirubin,Total 2.3 mg/dL (0.2-1.3); Blood Urea Nitrogen 5 mg/dL (7-17); Calcium 9.5 mg/dL (8.4-10.2); Carbon Dioxide 25 mmol/L (22-30); Chloride 99 mmol/L (98-107); Estimated CRCL calculation 143 ml/min; Estimated Glomerular Filt Rate > 60; Glucose 105 mg/dL (65-110); Lipase 84 U/L (23-300); Potassium 3.3 mmol/L (3.4-5.0); Sodium 135 mmol/L (137-145); Total Protein 8.7 g/dL (6.3-8.2)
[2024-11-12] MEDS: HYDROmorphone HCL INJ (*CRX) 2 MG/ML VIAL 0.5 MG IV PUSH (07:08)
== END 2024-11-12 10:02 | disposition home or self-care (01) ==
PROVIDERS: Emergency Medicine; Emergency Provider Emergency Medicine
DX: K80.20 Calculus of gallbladder without cholecystitis without obstruction (principal); Z90.79 Acquired absence of other genital organ(s); Z77.22 Contact with and (suspected) exposure to environmental tobacco smoke (acute) (chronic); Z79.82 Long term (current) use of aspirin
CPT/HCPCS: 36415; 74177; 80053; 81001; 81025; 83690; 85025; 96361; 96374; 96375; 99284; J1171; J2405; J7030; Q9967

== ENCOUNTER 2024-11-19 16:57 | Outpatient (CLI) | payer BC, SELFPAY ==
--- OUTSIDE RECORDS SUMMARY | 2024-11-19 17:01 | XMS_ITS | Clinical Summary ---
Author Organization [address] Address [address] [place] [address] Care Team Providers Care Archival Records Clerk Name Role Phone Unknown, Notinfile Primary Care [...] Genotypes (09/19/2023 9:45 AM CDT) CLINICAL INFORMATION: [facility] Comment:SCREENING LMP [facility] Comment:[phone] Previous Pap [facility] Comment:NONE GIVEN Prev. Bx [facility] Comment:NONE GIVEN SOURCE: [facility] Comment:Cervix, Endocervix Pap, specimen adequacy [facility] Comment: Satisfactory for evaluation. Endocervical/transformation zone component present. HPV interp [facility] Comment: Cytology Results: Negative for intraepithelial lesion or malignancy. COMMENTS [facility] Comment: This Pap test has been evaluated with computer assisted technology. Outside Machinist Supervisor Que [facility] Comment: SAGRARIO, CT(ASCP) CT screening location: [place] [address] Administration ANT [place] [phone] Comment [facility] Comment: EXPLANATORY NOTE: The Pap is [...] NP LAB CYTOLOGY ORDERABLES Final Re sult [facility] [address] Administration ANT [place] [phone] Rigo Chavez/[place] [address] [facility] [place] [address] from Last 3 Months or Most Recently Relevant to Health Maintenance Insurance ANTHEM ACCESS Care Teams Archival Records Clerk Relationship Specialty Start Date End Date Unknown, Notinfile PCP - General 07/26/23
--- OUTSIDE RECORDS SUMMARY | 2024-11-19 17:01 | XMS_ITS | Encounter Summary ---
Author Organization [facility] Address [address] [place] [address] Care Team Providers Care Analytical Research Program Manager Name Role Phone Unavailable Primary Care Provider Unavailabl e Encounter Details Date Type Department Care Team (Late st Contact Info) Description 11/17/2024 External Device Data [facility] ABSTRACTION Provider, Abstract NO ADDRESS ON FILE Social History Tobacco Use Types Packs/Day Years [...]
--- OUTSIDE RECORDS SUMMARY | 2024-11-19 17:01 | XMS_ITS | Encounter Summary ---
Author Organization [facility] Address [address] [place] [address] Care Team Providers Care Field Training Manager Name Role Phone Unavailable Primary Care [...]
--- OUTSIDE RECORDS SUMMARY | 2024-11-19 17:01 | XMS_ITS | Clinical Summary ---
Author Organization [facility] Address [address] [place] [address] Care Team Providers Care Research Laboratory Technician Name Role Phone Unavailable Primary Care Provider Unavailabl e Allergies No known active allergies Encounters Date Type Department Care Team Description 11/18/2024 External Device Data [facility] ABSTRACTION Provider, Abstract 11/17/2024 External Device Data [facility] ABSTRACTION Provider, Abstract 11/17/2024 External Device Data [facility] ABSTRACTION Provider, Abstract 11/12/2024 12:33 PM CDT - 11/12/2024 11:59 PM CDT Hospital Encounter [facility] Diagnostic XR [address] [place] [id number] Cyn Sarabia MD Discharge Disposition: Home or Self Care from Last 3 Months Social History Tobacco Use Types Packs/Day Years Used Date Smoking Tobacco: Never Assessed Comments Unknown Sex and Gender Information Value Date Recorded Sex Assigned at Not on file Legal Sex Female 9:14 AM CDT Gender Identity Not on file Sexual Orientation Not on file Plan of Treatment Health Maintenance Due Date Last Done Comments HPV VACCINES (1 - 3-dose series) 2005 DTAP/TDAP/TD VACCINES (1 - Tdap) 2009 HEPATITIS B VACCINES (1 of 3 - 19+ 3-dose series) 09/13 HPV/Cotest (21-29) 10/01/2011 CERVICAL CANCER SCREENING 2020 HPV/Cotest (30-65) 2020 PAP SMEAR 2020 INFLUENZA VACCINE (#1) 2024 Procedures Procedure Name Priority Date/Time Associated Diagnosis Comments XR HYSTEROSALPINGOGRAM Routine 1:33 PM CDT Procreative investigation and testing POC , URINE Routine 11/12/2024 12:55 PM CDT from Last 3 Months Results * XR HYSTEROSALPINGOGRAM (11/12/2024 1:33 PM CDT) Anatomical Region Laterality Modality Pelvis Computed Radiogr aphy 11/12/2024 1:37 PM CDT Impressions 11/12/2024 1:43 PM CDT IMPRESSION: Normal right fallopian tube and uterus Occluded left fallopian tube DICTATION LOCATION: Location [address] [place] [address] 11/12/2024 1:43 PM CDT HYSTEROSALPINGOGRAM DATE: 11/12/2024 1:33 PM HISTORY: See Diagnosis Procreative investigation and testing COMPARISON: No prior studies are available for comparison. FLUOROSCOPY TIME: 0.9 minutes. Number of images 8.0 REFERENCE AIR KERMA DOSE: 19.6 mGy. FINDINGS: Following informed consent, the patient was placed on the fluoroscopy table. After placing a speculum in the vagina, the cervical os was identified and catheterized with a 5 Malaysian balloon tipped catheter. Nonionic contrast injected into the catheter opacifies a normal uterine cavity. The right fallopian tube is normal with intraperitoneal spillage. The left fallopian tube appears occluded. There are some venous extravasation from the left fallopian tube. INCIDENTAL FINDINGS: None. Procedure Note Jony Resendiz MD - 11/12/2024 HYSTEROSALPINGOGRAM DATE: 11/12/2024 1:33 PM HISTORY: See Diagnosis Procreative investigation and testing COMPARISON: No prior studies are available for comparison. FLUOROSCOPY TIME: 0.9 minutes. Number of images 8.0 REFERENCE AIR KERMA DOSE: 19.6 mGy. FINDINGS: Following informed consent, the patient was placed on the fluoroscopy table. After placing a speculum in the vagina, the cervical os was identified and catheterized with a 5 Malaysian balloon tipped catheter. Nonionic contrast injected into the catheter opacifies a normal uterine cavity. The right fallopian tube is normal with intraperitoneal spillage. The left fallopian tube appears occluded. There are some venous extravasation from the left fallopian tube. INCIDENTAL FINDINGS: None. IMPRESSION: Normal right fallopian tube and uterus Occluded left fallopian tube DICTATION LOCATION: Location [address] [facility] Cyn Sarabia MD DIAGNOSTIC IMAGING ORDERABL ES Final Result * (ABNORMAL) POC , URINE (11/12/2024 12:55 PM CDT) HCG QUAL URINE POC Positive( A) Negative, Indeterminate INTERNAL KIT QC POC Pass Pass KIT LOT NUMBER POC [id number] KIT EXP DATE POC 2026-02-14 7 Urine 11/12/2024 12:5 5 PM CDT Jony Resendiz MD POINT OF CARE TESTING Final Res ult from Last 3 Months Insurance BC [employer]
--- OUTSIDE RECORDS SUMMARY | 2024-11-19 17:01 | XMS_ITS | Continuity of Care Document ---
Author Name [facility] Organization [facility] Care Team Providers Care Visitor Services Technician Name Role Phone [facility] Unavailable Unavailable Problems Combined list of problems from Department of Defense and Veterans Affairs facilities. It does not include entries that were removed or entered in error. Problem Status Onset Date Problem Type Date of Resolution Comments Source Outpatient Physician Consultation Active Condition [facility] CONDITIONS INFLUENCING HEALTH STATUS Active Condition DoD visit for: administrative purpose Inactive Condition [facility] Gynecologic Services Contraceptive Management Inactive Condition [facility] Cervical Pap Smear Inactive Condition Do D Established Patient Age 12-17 School / Camp Physical Inactive Condition [facility] Allergies, Adverse Reactions, Alerts Combined list of allergies from Department of Defense and Veterans Affairs facilities. It does not include entries that were removed or entered in error. Substance Category Reaction Severity Reaction type Status Date Reported Comments Source NO OUTPUT FOR NCID [id number] Drug allergy (disorder) active 10/02/[address] [place] [address] [facility]) Encounters Combined list of: 1) Encounters from Department of Veterans Affairs facilities going backup to the last 18 months, not all VA inpatient encounters are included; 2) Encounters from the Department of Defense facilities going backup to 280 months. Location Location Details Encounter Type Encounter Number Reason For Visit Attending Provider ADM Date DC Date Status Disposition Source [address] [place] [address] Rj [facility] [facility] [place] OUTPATIENT [id number] school ELEN Don 11/21 Released w/o Limitations [address] [place] [address] Rj [facility]S [place] [facility] [place] Res [place] [address] [place] [address] Rj [facility])(Fam darek Med Tm B Non-AD BCC) TELE CONSULT [id number] Notes Entered by: YOSELYN BABIN 15 Nov 2011 1258 ------- ------- ------- ------- -- ACCOUNTING PROFESSIONAL Referra l/Victorino ell/[phone] 63/KMR JOANNE COFFEY 11/[address] [place] [address])(F amily Med Tm B Non-AD BCC) [address] [place] [address])(Fam darek Med Tm B Non-AD BCC) TELE CONSULT [id number] Notes Entered by: QUIN LUCIANO 04 Dec 2011 1357 ------- ------- ------- ------- -- ACCOUNTING PROFESSIONAL Annamarie greer - [facility] JOANNE COFFEY 12/[address] [place] [address])(F amily Med Tm B Non-AD BCC) [address] [place] [address])(Cloth Bale Header ecology) TELE CONSULT [id number] Notes Entered by: Franky URBINA 06 Dec 2011 1501 ------- ------- ------- ------- -- Pt would like annamarie greer off base VIRGINIA MOREL 12/[address] [place] [address])(G ynecolo gy) [address] [place] [address])(Cloth Bale Header ecology) OUTPATIENT [id number] Gynecol ogic Service s Contrac eptive Manage ent YIFAN MENSAH 12/13 Released w/o Limitations [address] [place] [address])(G ynecolo gy) [address] [place] [address])(Fam darek Med Tm B Non-AD BCC) TELE CONSULT [id number] Notes Entered by: MARK ALBERTO 26 Nov 2012 1546 ------- ------- ------- ------- -- Kalyan greer/GAURAV Vital 11/[address] [place] [address])(F amily Med Tm B Non-AD BCC) [address] [place] [address])(War rior Op Med Cln Tm A Ad) TELE CONSULT [id number] Notes Entered by: ABDIRASHID MCMULLEN 02 Jan 2013 1149 ------- ------- ------- ------- -- Network Results -ONCOLO GY 12/16/12 YAYA JEREMY STRAUSS 01/[address] [place] [address] Group Rj [facility] ([facility])(W arrior Op Med Cln Tm A Ad) [address] [place] [address] Group Rj [facility])(Fam darek Med Tm B Non-AD BCC) OUTPATIENT [id number] F/u concuss ion on Saturday [facility] RADHA ZAVALA 08/10 Released w/o Limitations [address] [place] [address] Group Rj [facility] ([facility])(F amily Med Tm B Non-AD BCC) Procedures [...] Non-Physician Phone Call To Patient/Provider Brief (5-10min) [id number] 11/28/2012 GAURAV WEBER [facility] Non-Physician Phone Call To Pt/Provider Intermed (11-20 min) Non-Physician Phone Call To Pt/Provider Intermed (11-20 min) [id number] 12/06/2011 JOANNE COFFEY DoD Non-Physician Phone Call To Pt/Provider Intermed (11-20 min) Non-Physician Phone Call To Pt/Provider Intermed (11-20 min) [id number] 11/16/2011 JOANNE COFFEY DoD Social History Combined list of available smoking, tobacco, and other social history from Department of Defense and Veterans Affairs facilities. Social History Type Response Date Comment [facility] e This section is an empty social history section. DoD
--- OUTSIDE RECORDS SUMMARY | 2024-11-19 17:01 | XMS_ITS | Encounter Summary ---
Author Organization [facility] Address [address] [place] [address] Care Team Providers Care Automobile Assembly Supervisor Name Role Phone Unavailable Primary Care Provider Unavailabl e Encounter Details Date Type Department Care Team (Late st Contact Info) Description 11/18/2024 External Device Data ST[facility] ABSTRACTION [...]
[2024-11-19 17:15] LABS: Hematocrit 32.6 % (37.0-47.0); Hemoglobin 10.5 g/dL (12.0-15.0); Immature Granulocyte Percent A 0.5 % (0-0.5); Lymphocytes Absolute Auto 3.32 K/mm3 (0.9-3.2); Mean Corpuscular HGB Conc 32.2 g/dl (32-36); Mean Corpuscular Hemoglobin 27.5 pg (26-34); Mean Corpuscular Volume 85.3 fl (80-100); Nucleated Red Blood Cells Absolute Auto 0.000 K/mm3 (0.0-0.012); Nucleated Red Blood Cells Perc 0.0 % (0.0-0.2); Platelet Count Result 473 k/mm3 (150-375); Red Blood Count 3.82 M/mm3 (4.2-5.4); White Blood Count 10.1 K/mm3 (4.5-10.0)
[2024-11-19 17:27] LABS: Alanine Aminotransferase 31 U/L (6-35); Albumin Level 3.9 g/dL (3.5-5.1); Alkaline Phosphatase 126 U/L (38-126); Anion Gap 9 mmol/L (4-12); Aspartate Amino Transferase 31 U/L (14-36); Bilirubin,Total 0.8 mg/dL (0.2-1.3); Blood Urea Nitrogen 6 mg/dL (7-17); Calcium 9.2 mg/dL (8.4-10.2); Carbon Dioxide 27 mmol/L (22-30); Chloride 100 mmol/L (98-107); Estimated Glomerular Filt Rate > 60; Glucose 89 mg/dL (65-110); Potassium 4.0 mmol/L (3.4-5.0); Sodium 136 mmol/L (137-145); Total Protein 7.8 g/dL (6.3-8.2)
== END 2024-11-19 16:58 | disposition home or self-care (01) ==
LOC: ANHLAB 16:59
PROVIDERS: PCP Surgery; Visit Provider Surgery
DX: R74.8 Abnormal levels of other serum enzymes (principal)
CPT/HCPCS: 36415; 80053; 85025

== ENCOUNTER 2025-02-10 11:39 | Outpatient (CLI) | payer BC, SELFPAY ==
[2025-02-10 12:48] LABS: Hematocrit 39.5 % (37.0-47.0); Hemoglobin 13.3 g/dL (12.0-15.0); Immature Granulocyte Percent A 0.4 % (0-0.5); Lymphocytes Absolute Auto 2.58 K/mm3 (0.9-3.2); Mean Corpuscular HGB Conc 33.7 g/dl (32-36); Mean Corpuscular Hemoglobin 29.2 pg (26-34); Mean Corpuscular Volume 86.8 fl (80-100); Nucleated Red Blood Cells Absolute Auto 0.000 K/mm3 (0.0-0.012); Nucleated Red Blood Cells Perc 0.0 % (0.0-0.2); Platelet Count Result 326 k/mm3 (150-375); Red Blood Count 4.55 M/mm3 (4.2-5.4); White Blood Count 10.6 K/mm3 (4.5-10.0)
--- OUTSIDE RECORDS SUMMARY | 2025-02-10 13:15 | XMS_ITS | Clinical Summary ---
Author Organization [facility] Address [address] [place] [address] Care Team Providers Care Steam Cleaning Machine Operator Name Role Phone Unavailable Primary Care Provider Unavailabl e Source Comments [facility],non-owned Affiliates and Associated Physician Practices is amultiple site organization consisting of ambulatory clinics and hospital sitesin [place], [place], [place] and [place]. This disclosure is being madepursuant to the Care Everywhere program and may not contain all information available regarding this patient. Last updated 18.[facility] Social History Tobacco Use Types Packs/Day Years Used Date Smoking Tobacco: Never Assessed Comments Unknown Sex and Gender Information Value Date Recorded Sex Assigned at Not on file Legal Sex Female 6:38 AM RACING CAR DRIVER Gender Identity Not on file Sexual Orientation Not on file Plan of Treatment Upcoming Encounters Date Type Department Care Team (Late st Contact Info) Description 02/23/2025 1:00 PM RACING CAR DRIVER Appointment [facility] [address] [place] [id number] 02/23/2025 1:45 PM RACING CAR DRIVER Appointment [facility] [address] [place] [address] Health Maintenance Due Date Last Done Comments HIV SCREENING 2005 HEPATITIS C SCREENING 09/25/2008 DTAP/TDAP/TD VACCINES (1 - Tdap) 2009 HEPATITIS B VACCINE (1 of 3 - 19+ 3-dose series) 2009 PAP SMEAR 10/01/2011 HPV VACCINE (1 - 3-dose SCDM series) 2017 DEPRESSION SCREENING 04/15/2024 COVID-19 VACCINE (1 - 2023-2 5 season) 2024 INFLUENZA VACCINE (#1) 2024 ZOSTER VACCINE (1 of 2) 2040 HIB VACCINE Aged Out No longer eligi ble based on patient's age to complete this topic MENINGOCOCCAL (Group B) VACC INE SHARED DECISION-MAKING Aged Out No longer eligibl e based on patient's age to complete this topic MENINGOCOCCAL GROUPS A/C/Y/W VACCINE Aged Out No longer eligible b ased on patient's age to complete this topic PNEUMOCOCCAL VACCINE Aged Out No long er eligible based on patient's age to complete this topic Insurance SELF PAY NO INSURANCE Member Subscriber Plan / Payer (Ef fective for All Dates) Name:Olga Lidia Ordoñez Member ID:Not on file Relation to Subscriber:Not on file Name:OLGA LIDIA SANCHEZ Subscriber ID:Not on file (Home) Address: [address] [place] [address] Payer ID:Not on file Group ID:Not on file Type:Self Pay Address: [place], [place]
[2025-02-10 13:33] LABS: Syphilis IgG/IgM Antibody Non-Reactive (Nonreactive)
[2025-02-10 13:36] LABS: Hepatitis B Surface Antigen Negative (Negative)
[2025-02-10 13:46] LABS: HIV 1/2 Ab P24 Ag Result Negative (Negative)
[2025-02-11 07:09] LABS: Cytomegalovirus (CMV) Ab, IgG <0.60 U/mL (0.00-0.59); HSV 1 IgG, Type Spec Non Reactive (Non Reactive); HSV 2 IgG, Type Spec Non Reactive (Non Reactive); Varicella-Zoster Ab, IgG Reactive (Non Reactive)
[2025-02-16 13:08] LABS: Parvovirus B19, IgG 6.1 index (0.0-0.8); Parvovirus B19, IgM 0.2 index (0.0-0.8)
== END 2025-02-10 11:40 | disposition home or self-care (01) ==
LOC: ANHLAB 11:40
PROVIDERS: Visit Provider Obstetrics & Gynecology
DX: Z34.90 Encounter for supervision of normal pregnancy, unspecified, unspecified trimester (principal); Z20.828 Contact with and (suspected) exposure to other viral communicable diseases
CPT/HCPCS: 36415; 85025; 86593; 86644; 86695; 86696; 86703; 86747; 86762; 86787; 86850; 86900; 86901; 87340; G0432

== ENCOUNTER 2025-03-05 15:11 | Outpatient (CLI) | payer BC, SELFPAY ==
--- OUTSIDE RECORDS SUMMARY | 2025-03-05 15:16 | XMS_ITS | Clinical Summary ---
Author Organization [address] Address [address] [place] [address] Care Team Providers Care Wash Mill Operator Name Role Phone Unknown, Notinfile Primary Care Provider Unavail able Allergies No known active allergies Medications progesterone (PROMETRIUM) 100 mg capsule Take 1 capsule (100 mg total) by mouth daily Starting on Day 14 of the cycle. Increase to 200mg po with positive test. 30 capsule 11 4 Active Active Problems Problem Noted Date Diagnosed [...] (1 - 3-dose SCD M series) 2017 Cervical Cancer Screening 09/18/2024 09/19/2023 Depression Screening 09/18/2024 09/19/2023 Regular Well Visit/Exam 18-64 09/18/2024 09/19/2023 Covid-19 Vaccine (3 - 2024-2 6 season) 2024 07/24/2020, 07/01/2020 Influenza Vaccine (#1) 2024 12/16/2012 Pneumococcal vaccine [...] INFORMATION: [facility] Comment:SCREENING LMP [facility] Comment:[id number] Previous Pap [facility] Comment:NONE GIVEN Prev. Bx [facility] Comment:NONE GIVEN SOURCE: [facility] Comment:Cervix, Endocervix Pap, specimen adequacy [facility] Comment: Satisfactory for evaluation. Endocervical/transformation zone component present. HPV interp [facility] Comment: Cytology Results: Negative for intraepithelial lesion or malignancy. COMMENTS [facility] Comment: This Pap test has been evaluated with computer assisted technology. Welder Apprentice Combination Que [facility] Comment: [place], CT(ASCP) CT screening location: [place] [address] Administration ANT [place] [phone] Comment [facility] Comment: EXPLANATORY NOTE: The [...] NP LAB CYTOLOGY ORDERABLES Final Re sult [place] [address] Administration ANT [place] [phone] Rigo Chavez/Iván [place] [phone] [facility] GERARDO Gann [phone] from Last 3 Months or Most Recently Relevant to Health Maintenance Insurance ANTHEM ACCESS Care Teams Wash Mill Operator Relationship Specialty Start Date End Date Unknown, Notinfile PCP - General 07/26/23
--- OUTSIDE RECORDS SUMMARY | 2025-03-05 15:16 | XMS_ITS | Clinical Summary ---
Author Organization [facility] Address [address] [place] [address] Care Team Providers Care Benefits Director Name Role Phone Unavailable Primary Care Provider Unavailabl e Source Comments [facility],non-owned Affiliates and Associated Physician Practices is amultiple site organization consisting of ambulatory clinics and hospital sitesin [place], [place], [place] and [place]. This disclosure is being madepursuant to the Care Everywhere program and may not contain all information available regarding this patient. Last updated 18.[facility] Allergies No known active allergies Medications * Be aware that medications may not be up to date on this document. Alwaysverify current medications with the patient. Vit-DSS-Fe Fum-FA ( vitamin with iron) tablet Take 1 (one) tablet by mouth once daily Active aspirin (Aspirin) 81 MG chew tablet Take 2 (two) tablets by mouth once daily (chew and swallow) Active Progesterone 100 MG capsule Take 2 (two) capsules by mouth at bedtime Active vitamin D3 (Cholecalcifero l) 25 MCG (1000 UNITS) tablet Take 1 (one) tablet by mouth once daily Active Encounters Date Type Department Care Team Description 02/23/2025 12:50 PM CLERICAL AND OFFICE SUPPORT WORKERS - 02/23/2025 11:59 PM CLERICAL AND OFFICE SUPPORT WORKERS Hospital Encounter [facility] [address] [place] [address] Pietro Manley MD Discharge Disposition: Home or Self Care 02/23/2025 12:49 PM CLERICAL AND OFFICE SUPPORT WORKERS Hospital Encounter [facility] [address] [place] [address] Pietro Manley MD Discharge Disposition: Home or Self Care from Last 3 Months Family History Medical History Relation Name Comments Pulmonary Embolism Father Cancer - Breast Mother Relation Name Status Comments Father Mother Sister Alive Social History Tobacco Use Types Packs/Day Years Used Date Smoking Tobacco: Never Smokeless Tobacco: Never Estimated Date of Delivery Comme nts Yes 09/04/2025 Based on last me nstrual period of 11/28/2024 Sex and Gender Information Value Date Recorded Sex Assigned at Not on file Legal Sex Female 6:38 AM CLERICAL AND OFFICE SUPPORT WORKERS Gender Identity Not on file Sexual Orientation Not on file Last Filed Vital Signs Vital Sign Reading Time Taken Comments Blood Pressure 134/69 02/23/2025 1:22 PM CLERICAL AND OFFICE SUPPORT WORKERS Pulse 101 02/23/2025 1:22 PM CLERICAL AND OFFICE SUPPORT WORKERS Temperature - - Respiratory Rate - - Oxygen Saturation - - Inhaled Oxygen Concentration - - Weight 102.6 kg (226 lb 3.2 oz) 02/23/2025 1:22 PM CLERICAL AND OFFICE SUPPORT WORKERS Height 175.3 cm (5' 9) 02/23/2025 1:22 PM CLERICAL AND OFFICE SUPPORT WORKERS Body Mass Index 33.4 02/23/2025 1:22 PM CLERICAL AND OFFICE SUPPORT WORKERS Plan of Treatment Upcoming Encounters Date Type Department Care Team (Late st Contact Info) Description 03/31/2025 8:15 AM CLERICAL AND OFFICE SUPPORT WORKERS Appointment [facility] [address] [place], [place] [id number] Health Maintenance Due Date Last Done Comments HIV SCREENING 2005 HEPATITIS C SCREENING 09/25/2008 DTAP/TDAP/TD VACCINES (1 - Tdap) 2009 HEPATITIS B VACCINE (1 of 3 - 19+ 3-dose series) 2009 Cervical Cancer Screening 10/01/2011 PAP SMEAR 10/01/2011 HPV VACCINE (1 - 3-dose SCDM series) 2017 PAP with HPV 2020 DEPRESSION SCREENING 04/15/2024 COVID-19 VACCINE (3 - 2024-2 6 season) 2024 07/24/2020, 07/01/2020 INFLUENZA VACCINE (#1) 2024 ZOSTER VACCINE (1 of 2) 2040 HIB VACCINE Aged Out No longer eligi ble based on patient's age to complete this topic MENINGOCOCCAL (Group B) VACCINE SHARED DECISION-MAKING Aged Out No longer eligible based on patient's age to complete this topic MENINGOCOCCAL GROUPS A/C/Y/W VACCINE Aged Out No longer eligible b ased on patient's age to complete this topic PNEUMOCOCCAL VACCINE Aged Out No long er eligible based on patient's age to complete this topic Respiratory Syncytial Virus (RSV) Vaccine Pt: or over 60 yrs (No Doses Required) Completed Procedures Procedure Name Priority Date/Time Associated Diagnosis Comments SONOGRAM - COMPLETE Routine 02/23/2025 1 2:51 PM CLERICAL AND OFFICE SUPPORT WORKERS MTHFR mutation Chronic cholecystitis 12 weeks gestation of (HCC) Spotting affecting , antepartum (HCC) BMI 35.0-35.9,adult from Last 3 Months Results * Sonogram - Complete (02/23/2025 12:51 PM CLERICAL AND OFFICE SUPPORT WORKERS) Linked Results Indication ======== Encounter for nuchal translucency screening Maternal obesity complicating , class 1 (BMI 30.0 - 34.9) Hypercoagulable state (MTHFR) complicating History ====== OB History 3. Para 0 [id number] 1. miscarriage 2023 2. ectopic 2024 Lab Tests Test Date Result NIPT Low risk, Male per patient Maternal Assessment Physical Exam Height 173 cm, 5 ft 8 in. Weight 103 kg, 226 lb. Initial weight 103 kg, 226 lb. BMI 34.36 kg/m . Initial BMI 34.36 kg/m . Weight gain 0 kg, 0 lb Method ====== Transabdominal ultrasound. View: Sufficient ========= Koenig . Number of fetuses: 1 Dating ====== Date Details Gest. age LUCY LMP 11/28/2024 12 w + 3 d 09/04/2025 Previous U/S 02/03/2025 GA, GA 9 w + 4 d 12 w + 3 d 09/04/2025 U/S 02/23/2025 based upon CRL 12 w + 4 d 09/03/2025 Assigned dating based on the LMP, selected on 02/23/2025 12 w + 3 d 09/04/2025 General Evaluation Cardiac activity present Amniotic fluid: normal Biometry FHR 163 bpm CRL 60.6 mm 12w 4d 45% Hadlock NT 1.30 mm Anatomy The following structures appear normal: Neck. Abdominal wall. Stomach. Bladder. Arms. Legs. Impression ========= * Koenig IUP at 12 weeks of gestation by stated EDC from LMP & early U/S * Referred to [facility] for obstetrical U/S & request for consult secondary to: Methylenetetrahydro folate reductase (MTHFR) gene mutation Family history of venous thromboembolism (VTE) * Today's ultrasound (U/S) findings: Living koenig intrauterine fetus [place] rump length (CRL) is normal-range Nuchal translucency (NT) is normal-range Amniotic fluid volume (AFV) appears normal PAST MEDICAL & OBSTETRICAL HISTORY * Medications: vitamins & low-dose aspirin & folate 1.5 mg & Vitamin D3 * Past Medical History: No CHTN, no DM, no thyroidopathy, no asthma, no VTE, no SLE She reports (results not available) testing in 2010 + MTHFR gene variant Pre- obesity Class I, BMI = 34.3 Recurrent cholelithiasis * Past Surgical History: laparoscopy + LT salpingectomy * Past Gynecologic History: no conization, no LEEP, no D&C * Past Obstetrical History: G1: SAB 6 wk 2023 G2: Ectopic 2024 G3: Current Short inter- interval (IPI) cf-DNA is reportedly low-risk * Family history of anomalies, syndromes or developmental delay, VTE Her father from PE age 47 years in 2006 * Social History: Denies ethanol, tobacco, drugs * Physical Examination: BP = 134/69 mmHg, Pulse = 101 bpm, Weight = 226 pounds * Laboratory data: laboratory panel is not currently available COUNSELING & RECOMMENDATIONS * Thrombophilia & venous thromboembolism (VTE) in Thrombophilias may be inherited or acquired: Inherited thrombophilias include: Factor V Leiden (FVL) mutation, Prothrombin [id number] gene mutation (PGM) Protein C deficiency, Protein S deficiency, Antithrombin deficiency Acquired thrombophilia = antiphospholipid (aPL) antibodies Anticardiolipin (aCL) antibodies: IgG and IgM by COOKIE Sxfk-flqn9-djnkatmt tein (GP) I antibodies: IgG and IgM by COOKIE Lupus anticoagulant (LA) testing: a three-step procedure Inherited thrombophilias may be considered low-risk versus high-risk: Low-risk: FVL heterozygous, PGM heterozygous, Protein C deficiency, Protein S deficiency High-risk: FVL homozygous, PGM homozygous, FVL+PGM compound heterozygous, AT3 deficiency Methylenetetrahydro folate reductase (MTHFR) gene mutations Common MTHFR gene mutations include C677T and T8731W MTHFR gene mutations are very common in the general population In the [place] @ 30% are heterozygous for the thermolabile variant of MTHFR In the [place] @ 10% are homozygous for the thermolabile variant of MTHFR In [place] @ 10-16% are homozygous for the MTHFR C677T gene mutation In [place] @ 4-6% are homozygous for the MTHFR [id number] An early report linked variant to APO (e.g. severe preeclampsia, abruption, IUGR, NTD, IUFD) A 2006 meta-analysis of 26 studies did not find MTHFR C677T to be a risk factor for APO Most major professional organizations do NOT consider MTHFR variants a thrombophilia By themselves, MTHFR mutations do NOT appear to increase VTE risk, even in Heparin anticoagulation is NOT indicated solely for MTHFR mutations Serum homocysteine levels are also NOT indicated for known MTHFR mutations A daily multivitamin containing at least 0.4 mg of folic acid is advised UpToDate concludes the 0.4 mg folate in vitamins is sufficient for MTHFR & obesity Consider folate-rich diet (https://ods.od.nih .gov/factsheets/Fol ate-HealthProfessio nal/) * In my best medical opinion, I would advise: Laboratory evaluation: Antiphospholipid syndrome (APS) antibodies including: Lupus anticoagulant Anticardiolipin antibodies (IgG & IgM) Jszg-greq6-qqueopqx tein I antibodies (IgG & IgM) Inherited thrombophilias: Factor II (prothrombin) [id number] mutation & Factor V Leiden mutation Protein S & Protein C & Antithrombin III activity MTHFR gene variants Follow-up assessment: Early basic anatomy (with TOP PRECIPITATOR OPERATOR visit to review labs) at 16 weeks Comprehensive anatomic survey & cervical length screening with MFM at 20 weeks Then U/S for growth & amniotic fluid volume & development every 6 weeks testing (e.g. NST+BPP or NST+MAXIMO) to be determined Delivery planning (timing, mode, location): too early to determine at present COMMENTS * Thank you very much for requesting [facility] participation in her obstetrical care * Findings were explained & questions were addressed & precautions were given to patient * U/S does not detect all structural, genetic & functional jjinnyva-dpleh-dpio ental abnormalities * Telemedicine services were performed for this U/S examination & MFM consultation Patient's identity was confirmed at the [facility] office Appropriateness of the telehealth consult was confirmed Informed consent for telemedicine services was obtained & scanned into EMR Modality was secure interactive audio-video session using Solaborate/LUX Assure Patient site location was [facility] & nurse presenter was Abdoulaye BaeManzo Distant site provider was Pietro Manley MD & location was home office New consult = 45 minutes total, including record review & counseling & coordination of care Follow-up ======== in 4 weeks Coding ====== Diagnoses O99.211, E66.812: Obesity complicating , class 2 (BMI 35.0 - 39.9) Z36.82: Encounter for screening for nuchal translucency Procedures 73101: 1st Trimester 03246: [facility]uchal Translucency [facility] ikeG[facility] PACS Anatomical Region Laterality Modality Other 02/23/2025 12:5 1 PM CLERICAL AND OFFICE SUPPORT WORKERS us Joao Cheatham MD [facility] ORDERABLES Edited Result - Final from Last 3 Months Insurance [facility]
--- OUTSIDE RECORDS SUMMARY | 2025-03-05 15:16 | XMS_ITS | Clinical Summary ---
Author Organization [facility] Administrative Offices Address [address] [place] [phone] Care Team Providers Care Game Protector Name Role Phone Unavailable Primary Care Provider Unavailabl e Allergies No known active allergies Encounters Date Type Department Care Team Description 12/30/2024 External Device Data STL ABSTRACTION Provider, Abstract 12/15/2024 External Device Data STL ABSTRACTION Provider, Abstract from Last 3 Months Social History Tobacco Use Types Packs/Day Years Used Date Smoking Tobacco: Never Assessed Comments Unknown Sex and Gender Information Value Date Recorded Sex Assigned at Not on file Legal Sex Female 9:14 AM CDT Gender Identity Not on file Sexual Orientation Not on file Plan of Treatment Health Maintenance Due Date Last Done Comments DTAP/TDAP/TD VACCINES (1 - Tdap) 2009 HEPATITIS B VACCINES (1 of 3 - 19+ 3-dose series) 09/13 HPV/Cotest (21-29) 10/01/2011 HPV VACCINES (1 - 3-dose SCDM series) 2017 CERVICAL CANCER SCREENING 2020 HPV/Cotest (30-65) 2020 PAP SMEAR 2020 INFLUENZA VACCINE (#1) 2024 Insurance BCBS TRADITIONAL
[2025-03-05 16:39] LABS: Glucose 1 Hour PP 50gm Dose 127 mg/dL
== END 2025-03-05 15:12 | disposition home or self-care (01) ==
LOC: ANHLAB 15:15
PROVIDERS: Visit Provider Obstetrics & Gynecology
DX: Z34.90 Encounter for supervision of normal pregnancy, unspecified, unspecified trimester (principal); Z3A.00 Weeks of gestation of pregnancy not specified
CPT/HCPCS: 36415; 82947; 87086

== ENCOUNTER 2025-03-15 11:35 | Outpatient (CLI) | payer BC, SELFPAY ==
[2025-03-15 12:48] LABS: INR 1.0; Prothrombin Time 13.0 Seconds (11.1-14.7)
--- OUTSIDE RECORDS SUMMARY | 2025-03-15 13:13 | XMS_ITS | Clinical Summary ---
Author Organization [facility] Address [address] [place] [address] Care Team Providers Care Hand Candle Dipper Name Role Phone Unavailable Primary Care Provider Unavailabl e Source Comments [facility],non-owned Affiliates and Associated Physician Practices is amultiple site organization consisting of ambulatory clinics and hospital sitesin [place], [place], [place] and [place]. This disclosure is being madepursuant to the Care Everywhere program and may not contain all information available regarding this patient. Last updated 18.[facility] Allergies No known active allergies Medications [...] Encounters Date Type Department Care Team Description 03/08/2025 Orders Only [facility] [address] [place] [address] Hayde Manzo RN Family history of thrombosis or embolism; History of miscarriage, currently , first trimester (HCC) 02/23/2025 12:50 PM DEFENCE FORCE MEMBER OTHER RANKS - 02/23/2025 11:59 PM DEFENCE FORCE MEMBER OTHER RANKS Hospital Encounter [facility] [address] [place] [address] Pietro Manley MD Discharge Disposition: Home or Self Care 02/23/2025 12:49 PM DEFENCE FORCE MEMBER OTHER RANKS Hospital Encounter [facility] [address] [place] [address] Pietro Manley MD Discharge Disposition: Home or [...] on file Legal Sex Female 6:38 AM DEFENCE FORCE MEMBER OTHER RANKS Gender Identity Not on file Sexual Orientation Not on file Last Filed Vital Signs Vital Sign Reading Time Taken Comments Blood Pressure 134/69 02/23/2025 1:22 PM DEFENCE FORCE MEMBER OTHER RANKS Pulse 101 02/23/2025 1:22 PM DEFENCE FORCE MEMBER OTHER RANKS Temperature - - Respiratory Rate - - Oxygen Saturation - - Inhaled Oxygen Concentration - - Weight 102.6 kg (226 lb 3.2 oz) 02/23/2025 1:22 PM DEFENCE FORCE MEMBER OTHER RANKS Height 175.3 cm (5' 9) 02/23/2025 1:22 PM DEFENCE FORCE MEMBER OTHER RANKS Body Mass Index 33.4 02/23/2025 1:22 PM DEFENCE FORCE MEMBER OTHER RANKS Plan of Treatment Upcoming Encounters Date Type Department Care Team (Late st Contact Info) Description 03/31/2025 8:15 AM DEFENCE FORCE MEMBER OTHER RANKS Appointment [facility] [address] [place] [address] Health Maintenance Due Date Last Done Comments [...] - COMPLETE Routine 02/23/2025 1 2:51 PM DEFENCE FORCE MEMBER OTHER RANKS MTHFR mutation Chronic cholecystitis 12 weeks gestation of (HCC) Spotting affecting , antepartum (HCC) BMI 35.0-35.9,adult from Last 3 Months Results * Sonogram - Complete (02/23/2025 12:51 PM DEFENCE FORCE MEMBER OTHER RANKS) Linked Results Indication ======== Encounter for nuchal translucency screening Maternal obesity complicating , class 1 (BMI 30.0 - 34.9) Hypercoagulable state (MTHFR) complicating History ====== OB History 3. Para 0 [id number] 1. miscarriage 2023 2. ectopic 2024 Lab [...] LMP & early U/S * Referred to [facility] for obstetrical U/S & request for consult secondary to: Methylenetetrahydro folate reductase (MTHFR) gene mutation Family history of venous thromboembolism (VTE) * Today's ultrasound (U/S) findings: Living koenig intrauterine fetus [place] rump length (CRL) is normal-range Nuchal translucency [...] include: Factor V Leiden (FVL) mutation, Prothrombin [id number] gene mutation (PGM) Protein C deficiency, Protein S deficiency, Antithrombin deficiency Acquired thrombophilia = antiphospholipid (aPL) antibodies Anticardiolipin (aCL) antibodies: IgG and IgM by COOKIE Ieyp-qqco7-efmjwbyx tein (GP) I antibodies: IgG and IgM by COOKIE Lupus anticoagulant (LA) testing: a three-step procedure Inherited thrombophilias may be considered low-risk versus high-risk: Low-risk: FVL heterozygous, PGM heterozygous, Protein C deficiency, Protein S deficiency High-risk: FVL homozygous, PGM homozygous, FVL+PGM compound heterozygous, AT3 deficiency Methylenetetrahydro folate reductase (MTHFR) gene mutations Common MTHFR gene mutations include C677T and Q1664M MTHFR gene mutations are very common in the general population In the [place] @ 30% are heterozygous for the thermolabile variant of MTHFR In the [place] @ 10% are homozygous for the thermolabile variant of MTHFR In [place] @ 10-16% are homozygous for the MTHFR C677T gene mutation In [place] @ 4-6% are homozygous for the MTHFR [id number] An early report linked variant to APO [...] Lupus anticoagulant Anticardiolipin antibodies (IgG & IgM) Rzrl-qaml0-pbgrshvj tein I antibodies (IgG & IgM) Inherited thrombophilias: Factor II (prothrombin) [id number] mutation & Factor V Leiden mutation Protein S & Protein C & Antithrombin III activity MTHFR gene variants Follow-up assessment: Early basic anatomy (with PICK UP AND DELIVERY DRIVER visit to review labs) at 16 weeks Comprehensive anatomic survey & cervical length screening with MFM at 20 weeks Then U/S for growth & amniotic fluid volume & development every 6 weeks testing (e.g. NST+BPP or NST+MAXIMO) to be determined Delivery planning (timing, mode, location): too early to determine at present COMMENTS * Thank you very much for requesting [facility] participation in her obstetrical care * Findings were explained & questions were addressed & precautions were given to patient * U/S does not detect all structural, genetic & functional aepfddab-vrmte-adbg ental abnormalities * Telemedicine services were performed for this U/S examination & MFM consultation Patient's identity was confirmed at the [facility] office Appropriateness of the telehealth consult was confirmed Informed consent for telemedicine services was obtained & scanned into EMR Modality was secure interactive audio-video session using [employer]/VividCortex Patient site location was [facility] & nurse presenter was Abdoulaye Manzo Distant site provider was Pietro Manley MD & location was home office New consult = 45 minutes total, including record review & counseling & coordination of care Follow-up ======== in 4 weeks Coding ====== Diagnoses O99.211, E66.812: Obesity complicating , class 2 (BMI 35.0 - 39.9) Z36.82: Encounter for screening for nuchal translucency Procedures 74596: 1st Trimester 53298: Nuchal Translucency [facility] JumpHawk PACS Anatomical Region Laterality Modality Other 02/23/2025 12:5 1 PM DEFENCE FORCE MEMBER OTHER RANKS us Joao Cheatham MD [facility] ORDERABLES Edited Result - Final from Last 3 Months Insurance [employer]
--- OUTSIDE RECORDS SUMMARY | 2025-03-15 13:13 | XMS_ITS | Clinical Summary ---
Author Organization [facility] Administrative Offices Address [address] [place] [phone] Care Team Providers Care Railroad Wheels And Axle Inspector Name Role Phone Unavailable Primary Care Provider [...]
--- OUTSIDE RECORDS SUMMARY | 2025-03-15 13:13 | XMS_ITS | Clinical Summary ---
Author Organization [address] Address [address] [place] [phone] Care Team Providers Care Bevel Operator Name Role Phone Unknown, Notinfile Primary [...] Genotypes (09/19/2023 9:45 AM CDT) CLINICAL INFORMATION: [facility] Comment:SCREENING LMP [facility] Comment:[id number] Previous Pap [facility] Comment:NONE GIVEN Prev. Bx [facility] Comment:NONE GIVEN SOURCE: [facility] Comment:Cervix, Endocervix Pap, specimen adequacy [facility] Comment: Satisfactory for evaluation. Endocervical/transformation zone component present. HPV interp [facility] Comment: Cytology Results: Negative for intraepithelial lesion or malignancy. COMMENTS [facility] Comment: This Pap test has been evaluated with computer assisted technology. Ic Designer Gate Arrays Que [facility] Comment: [place], CT(ASCP) CT screening location: [place] [address] Administration [place]T [place] [address] Comment [facility] Comment: EXPLANATORY NOTE: The Pap [...] NP LAB CYTOLOGY ORDERABLES Final Re sult [place] [address] [address] [place] [phone] Rigo Chavez/Iván CARRILLO [address] [facility] GERARDO Gann [phone] from Last 3 Months or Most Recently Relevant to Health Maintenance Insurance [employer] ACCESS Care Teams Bevel Operator Relationship Specialty Start Date End Date Unknown, Notinfile PCP - General 07/26/23
[2025-03-16 14:08] LABS: Anticardiolipin Ab,IgG,Qn <9 GPL U/mL (0-14); Anticardiolipin Ab,IgM,Qn <9 MPL U/mL (0-12); Beta-2 Glycoprotein I Ab, IgG <9 (0-20)
[2025-03-17 16:08] LABS: PTT-LA 34.8 sec (0.0-43.5)
== END 2025-03-15 11:36 | disposition home or self-care (01) ==
LOC: ANHLAB 11:43
PROVIDERS: Visit Provider Obstetrics & Gynecology
DX: O09.291 Supervision of pregnancy with other poor reproductive or obstetric history, first trimester (principal); Z82.49 Family history of ischemic heart disease and other diseases of the circulatory system; Z3A.00 Weeks of gestation of pregnancy not specified
CPT/HCPCS: 36415; 81241; 81291; 85300; 85306; 85610; 85732; 86146; 86147

== ENCOUNTER 2025-04-13 15:35 | Outpatient (CLI) | payer BC, SELFPAY ==
--- OUTSIDE RECORDS SUMMARY | 2025-04-13 15:38 | XMS_ITS | Clinical Summary ---
Author Organization [facility] Address [address] [place] [address] Care Team Providers Care Hot Dog Vendor Name Role Phone Unavailable Primary Care Provider Unavailabl e Social History Tobacco Use Types Packs/Day Years Used Date Smoking Tobacco: Never Assessed Comments Unknown Sex and Gender Information Value Date Recorded Sex Assigned at Not on file Legal Sex Female 2:20 PM EST Gender Identity Not on file Sexual Orientation Not on file Plan of Treatment Not on file Medical Devices Not on file Insurance
--- OUTSIDE RECORDS SUMMARY | 2025-04-13 15:38 | XMS_ITS | Clinical Summary ---
Author Organization [address] Address [address] [place] [phone] Care Team Providers Care Pearl Restorer Name Role Phone Unknown, Notinfile Primary Care [...] Genotypes (09/19/2023 9:45 AM CDT) CLINICAL INFORMATION: [facility] Comment:SCREENING LMP [facility] Comment:[id number] Previous Pap [facility] Comment:NONE GIVEN Prev. Bx [facility] Comment:NONE GIVEN SOURCE: [facility] Comment:Cervix, Endocervix Pap, specimen adequacy [facility] Comment: Satisfactory for evaluation. Endocervical/transformation zone component present. HPV interp [facility] Comment: Cytology Results: Negative for intraepithelial lesion or malignancy. COMMENTS [facility] Comment: This Pap test has been evaluated with computer assisted technology. Sales Administrator Que [facility] Comment: [place], CT(ASCP) CT screening location: [place] [address] Administration [place]T [place] [address] Comment [facility] Comment: EXPLANATORY NOTE: The Pap is [...] NP LAB CYTOLOGY ORDERABLES Final Re sult [place] [address] [address] [place] [phone] Rigo Chavez/Iván CAR[place] [address] [facility] [place] Gann [phone] from Last 3 Months or Most Recently Relevant to Health Maintenance Insurance [employer] ACCESS Care Teams Pearl Restorer Relationship Specialty Start Date End Date Unknown, Notinfile PCP - General 07/26/23
--- OUTSIDE RECORDS SUMMARY | 2025-04-13 15:38 | XMS_ITS | Clinical Summary ---
Author Organization [facility] Administrative Offices Address [address] [place] [phone] Care Team Providers Care Secondary Connector Armature Name Role Phone Unavailable Primary Care Provider Unavailabl e Allergies No known active allergies Encounters Date Type Department Care Team Description 03/30/2025 External Device Data STL ABSTRACTION Provider, Abstract 03/16/2025 External Device Data STL ABSTRACTION Provider, Abstract [...] PAP SMEAR 2020 INFLUENZA VACCINE (#1) 2024 HPV VACCINES (No Doses Required) Completed Insurance [facility]
--- OUTSIDE RECORDS SUMMARY | 2025-04-13 15:38 | XMS_ITS | Clinical Summary ---
Author Organization [facility] Address [address] [place] [address] Care Team Providers Care Picker And Sorter Load And Unload Name Role Phone Unavailable Primary Care Provider Unavailabl e Source Comments [facility],non-owned Affiliates and Associated Physician Practices is amultiple site organization consisting of ambulatory clinics and hospital sitesin [place], [place], [place] and [place]. This disclosure is being madepursuant to the Care Everywhere program and may not contain all information available regarding this patient. Last updated 18.[facility] Allergies No known active allergies Medications * [...] (one) tablet by mouth once daily Active Active Problems Problem Noted Date Diagnosed Date History of miscarriage, currently , firs t trimester 03/31/2025 MTHFR mutation 03/31/2025 Family history of thrombosis or embolism 025 Chronic cholecystitis 03/31/2025 17 weeks gestation of 03/31/2025 Encounter for anatomic survey 03/31/2025 Estimated Date of Delivery Comme nts Yes 09/04/2025 Based on last me nstrual period of 11/28/2024 Encounters Date Type Department Care Team Description 03/31/2025 8:12 AM PLATE ROLLER - 03/31/2025 11:59 PM PLATE ROLLER Hospital Encounter [facility] [address] [place] [address] Queta Robles MD Discharge Disposition: Home or Self Care 03/24/2025 Telephone [facility] [address] [place] [id number] Hayde Manzo, RN Results (Called [facility] laboratory and spoke with Roel regarding missing Beta 2 glycoprotein IGM.) 03/08/2025 Orders Only [facility] [address] [place] [phone] Hayde Manzo, breakfast server history of thrombosis or embolism; History of miscarriage, currently , first trimester (HCC) 02/23/2025 12:50 PM PLATE ROLLER - 02/23/2025 11:59 PM PLATE ROLLER Hospital Encounter [facility] [address] [place] [phone] Pietro Manley MD Discharge Disposition: Home or Self Care 02/23/2025 12:49 PM PLATE ROLLER Hospital Encounter [facility] [address] [place] [id number] Pietro Manley MD Discharge Disposition: Home or [...] on file Legal Sex Female 6:38 AM PLATE ROLLER Gender Identity Not on file Sexual Orientation Not on file Last Filed Vital Signs Vital Sign Reading Time Taken Comments Blood Pressure 125/77 03/31/2025 8:43 AM PLATE ROLLER Pulse 99 03/31/2025 8:43 AM PLATE ROLLER Temperature - - Respiratory Rate - - Oxygen Saturation 100% 03/31/2025 8:43 AM PLATE ROLLER Inhaled Oxygen Concentration - - Weight 104.8 kg (231 lb) 03/31/2025 8:43 AM PLATE ROLLER Height 175.3 cm (5' 9) 02/23/2025 1:22 PM PLATE ROLLER Body Mass Index 34.11 02/23/2025 1:22 PM PLATE ROLLER Plan of Treatment Upcoming Encounters Date Type Department Care Team (Late st Contact Info) Description 04/28/2025 7:30 AM PLATE ROLLER Appointment [facility] [address] [place], [place] [address] Health Maintenance Due Date Last Done Comments HIV SCREENING 2005 HEPATITIS C SCREENING 09/25/2008 DTAP/TDAP/TD VACCINES (1 - Tdap) 2009 HEPATITIS B VACCINE (1 of 3 - 19+ 3-dose series) 2009 PAP SMEAR 10/01/2011 HPV VACCINE (1 - 3-dose SCDM series) 2017 DEPRESSION SCREENING 04/15/2024 COVID-19 VACCINE (3 - [...] Associated Diagnosis Comments SONOGRAM - COMPLETE Routine 03/31/2025 8 :13 AM PLATE ROLLER History of miscarriage, currently , first trimester (HCC) MTHFR mutation Family history of thrombosis or embolism Chronic cholecystitis 17 weeks gestation of (HCC) Encounter for anatomic survey (HCC) Encounter for screening for cervical length (HCC) SONOGRAM - COMPLETE Routine 02/23/2025 1 2:51 PM PLATE ROLLER MTHFR mutation Chronic cholecystitis 12 weeks gestation of (HCC) Spotting affecting , antepartum (HCC) BMI 35.0-35.9,adult from Last 3 Months Results * Sonogram - Complete (03/31/2025 8:13 AM PLATE ROLLER) Only the most recent of2 resultswithin the time period is included. Linked Results Addendum ========= anatomy corrected Indication ======== anatomy evaluation Maternal obesity complicating , class 1 (BMI 30.0 - 34.9) Hypercoagulable state (MTHFR) complicating History ====== OB History 3. Para 0 [id number] 1. miscarriage 2023 2. ectopic 2024 Lab Tests Test Date Result NIPT Low risk, Male per patient Maternal Assessment Physical Exam Height 173 cm, 5 ft 8 in. Weight 105 kg, 231 lb. Initial weight 103 kg, 226 lb. BMI 35.12 kg/m . Initial BMI 34.36 kg/m . Weight gain 2 kg, 5 lb Method ====== Transabdominal ultrasound. View: Sufficient ========= Pearson . Number of fetuses: 1 Dating ====== Date Details Gest. age LUCY LMP 11/28/2024 17 w + 4 d 09/04/2025 Previous U/S 02/03/2025 GA, GA 9 w + 4 d 17 w + 4 d 09/04/2025 U/S 03/31/2025 based upon AC, BPD, Femur, HC 17 w + 5 d 09/03/2025 Assigned dating based on the LMP, selected on 02/23/2025 17 w + 4 d 09/04/2025 General Evaluation Cardiac activity present. FHR 157 bpm. Presentation: breech Placenta: Placental site: posterior, fundal Umbilical cord: Cord vessels: 3 vessel cord. Insertion site: normal insertion Amniotic fluid: Amount of AF: normal. MVP 4.8 cm Biometry BPD 40.2 mm 18w 1d 78% Hadlock HC 140.0 mm 17w 2d 29% Hadlock Cerebellum tr 18.3 mm 89% [place] AC 130.4 mm 18w 4d 80% Hadlock Femur 23.5 mm 17w 0d 26% Hadlock HC / AC 1.07 -/- 2% Hadlock Weight Calculation: EFW 211 g 59% Hadlock EFW (lb,oz) 0 lb 7 oz EFW by Hadlock ([id number]) appropriate Growth Overview Exam date GA BPD (mm) HC (mm) AC (mm) FL (mm) HL (mm) EFW (g) 03/31/2025 17w 4d 40.2 78% 140 29% 130.4 80% 23.5 26% 211 59% Anatomy The following structures appear normal: Head / Neck Cranium. Lateral ventricles. Choroid plexus. Cerebellum. Cisterna magna. Face Nasal bone. Heart / Thorax 4-chamber view. Abdomen Cord insertion. Stomach. Kidneys. Bladder. Genitals. Extremities / Skeleton Arms. Legs. The following structures could not be adequately visualized: Face Lips. Profile. Nose. Spine Cervical spine. Thoracic spine. Lumbar spine. Sacral spine. Extremities / Skeleton Hands. Feet. Maternal Structures Right Ovary Not visualized Appearance: Adnexa appears normal Left Ovary Not visualized Appearance: Adnexa appears normal Impression ========= Single, live, intrauterine at 17w 4d The size is appropriate. The amniotic fluid volume is normal. No major malformations were seen within the limitations of ultrasound. anatomic survey is limited by early gestational age. Follow-up ======== Follow up ultrasound in 4 weeks for growth, detailed anatomic survey and transvaginal cervical length screening. Coding ====== Diagnoses O99.212, E66.812: Obesity complicating , class 2 (BMI 35.0 - 39.9) Z36.82: Encounter for screening for nuchal translucency O99.112,E72.12: Other diseases of the blood and blood-forming organs and certain disorders involving the immune mechanism complicating , Hypercoagulable State (MTHFR) Procedures 27704: [facility]us >14 weeks [facility] Region Laterality Modality Other 03/31/2025 8:13 AM PLATE ROLLER Joao Cheatham MD [facility] ORDERABLES Edited Result - Final from Last 3 Months Insurance [facility]
[2025-04-13 16:13] LABS: INR 1.0; Prothrombin Time 13.3 Seconds (11.1-14.7)
[2025-04-14 13:08] LABS: Beta-2 Glycoprotein I Ab, IgG <9 (0-20)
== END 2025-04-13 15:36 | disposition home or self-care (01) ==
PROVIDERS: Visit Provider Obstetrics & Gynecology
DX: O09.291 Supervision of pregnancy with other poor reproductive or obstetric history, first trimester (principal); Z3A.00 Weeks of gestation of pregnancy not specified
CPT/HCPCS: 36415; 85610; 86146